=== PATIENT | male | born 1990 | race Caucasian/White ===

== ENCOUNTER 2017-09-27 17:24 | Emergency (ER) | payer OTHER ==
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
--- NOTE | 2017-09-27 18:52 | XR ---
EXAMINATION TYPE: XR lumbar spine 2 or 3V DATE OF EXAM: 09/27/2017 COMPARISON: NONE HISTORY: Low back pain TECHNIQUE: 3 views FINDINGS: Lumbar vertebra have normal spacing and alignment. Posterior elements are intact. Sacroilia c joints appear normal. I see no compression fracture. IMPRESSION: Negative lumbar spine exam
--- NOTE | 2017-09-27 18:53 | XR ---
EXAMINATION TYPE: XR thoracic spine 2V DATE OF EXAM: 09/27/2017 COMPARISON: NONE HISTORY: Back pain TECHNIQUE: 3 views FINDINGS: The thoracic vertebra have normal spacing and alignment. Posterior elements are intact. The re is no paraspinal mass. I see no compression fracture. IMPRESSION: Negative thoracic spine exam.
--- NOTE | 2017-09-27 18:55 | XR ---
EXAMINATION TYPE: XR knee complete RT DATE OF EXAM: 09/27/2017 COMPARISON: 07/06/2016 HISTORY: Knee pain TECHNIQUE: 3 views FINDINGS: There are screws in the distal femur and proximal tibia related to old reconstructive surge ry. I see no fracture nor dislocation. There is mild spurring of the medial femoral and tibial condyl es. There is no sign of joint effusion. IMPRESSION: Mild spurring. No fracture. No adverse change compared to old exam.
[2017-09-27] MEDS ORDERED: CYCLOBENZAPRINE 10MG STARTER 3 TAB BTL PO STA (19:27)
[2017-09-27] MEDS ORDERED: traMADol 50 MG STARTER PACK 3 TAB BTL PO STA (19:27)
[2017-09-27 19:50] VITALS: BP 135/60; PULSE 97; RESP 18; TEMP 99.8
== END 2017-09-27 19:50 | disposition home or self-care (01) ==
LOC: EC 17:24
DX: M17.11 Unilateral primary osteoarthritis, right knee (principal); M54.5 Low back pain; M54.6 Pain in thoracic spine
CPT/HCPCS: 72070; 72100; 99284

== ENCOUNTER 2017-10-04 18:44 | Emergency (ER) | payer OTHER ==
[2017-10-04 19:27] VITALS: BP 129/61; PULSE 95; RESP 18; TEMP 100.1
--- NOTE | 2017-10-04 20:25 | ED ---
General Adult HPI - General Chief complaint: Extremity Injury, Lower Stated complaint: Back/knee pain/fever Time Seen by Provider: 10/04/17 19:56 Source: patient, RN notes reviewed Mode of arrival: ambulatory Limitations: physical limitation - History of Present Illness Initial comments: 26-year-old male presents for right knee pain. He has a history of having knee surgery to the right knee in the past. He states that he felt a pop in his knee today and he is having more pain with movement. He was able to ambulate. He denies any falls or other trauma to the knee. He denies any fever chills. Patient was concerned due to the continued knee pain and his history of surgery state thought that he should be seen. Patient is otherwise feeling well. Patient denies any recent fever, chills, shortness of breath, chest pain, back pain, abdominal pain, nausea vomiting, numbness or tingling, dysuria or hematuria, constipation or diarrhea, headaches or visual changes, or any other current symptoms. - Related Data Home Medications Medication Instructions Recorded Confirmed Ibuprofen [Motrin Ib] 800 mg PO Q6H PRN 18 09/27/17 Previous Rx's Medication Instructions Recorded Cyclobenzaprine [Flexeril] 10 mg PO TID #15 tab 09/27/17 traMADol HCl [Ultram] 50 mg PO Q4H PRN #15 tab 09/27/17 Ibuprofen [Motrin] 600 mg PO Q6HR PRN #20 tab 10/04/17 Allergies Allergy/AdvReac Type Severity Reaction Status Date / Time Sulfa (Sulfonamide Allergy Unknown Verified 10/04/17 19:28 Antibiotics) Review of Systems ROS Statement: Those systems with pertinent positive or pertinent negative responses have been documented in the HPI. ROS Other: All systems not noted in ROS Statement are negative. Past Medical History Past Medical History: No Reported History History of Any Multi-Drug Resistant Organisms: None Reported Past Surgical History: Orthopedic Surgery Additional Past Surgical History / Comment(s): rt knee,nasal and ear surgery, cranial Past Psychological History: Anxiety Smoking Status: Never smoker Past Alcohol Use History: Occasional Past Drug Use History: None Reported General Exam - General Exam Comments Initial Comments: General: The patient is awake and alert, in no distress, and does not appear acutely ill. Neck: The neck is supple, there is no tenderness. Cardiovascular: There is a regular rate and rhythm. No murmur, rub or gallop is appreciated. Respiratory: Lungs are clear to auscultation, respirations are non-labored, breath sounds are equal. No wheezes, stridor, rales, or rhonchi. Musculoskeletal: Sensation intact with 2+ pulses throughout the right lower x- ray. Frontal motion of right ankle right knee and right hip. Patient does have some pain along the medial aspect of the right knee. Patient has some pain with range of motion of the right lung. Neurological: CN II-XII intact, There are no obvious motor or sensory deficits. Coordination appears grossly intact. Speech is normal. Skin: Skin is warm and dry and no rashes or lesions are noted. Psychiatric: Normal mood and affect. Limitations: physical limitation Course Vital Signs 10/04/17 19:23 Temperature 100.1 F H Pulse Rate 95 Respiratory 18 Rate Blood Pressure 129/61 O2 Sat by Pulse 99 Oximetry Procedures - Orthopedic Splinting/Casting Injury #1 Side: right Lower Extremity Injury Location: knee Lower Extremity Immobilizer: knee immobilizer Medical Decision Making - Medical Decision Making 26-year-old male presents complaining of right knee pain to me. At this time x- rays reviewed and negative. This time we discussed most likely right knee sprain. We did discuss fine up with or so due to his history of knee surgery in the past. We discussed return parameters and all questions. Patient stated he understood and he is here this plan. He will be discharged. - Radiology Data Radiology results: image reviewed Interpreted by me: Interpreted by me: Right knee xray: Four view, no fracture, no dislocation, no bony lesions, no foreign bodies, no soft tissue damage. Waiting official radiology read. Disposition Clinical Impression: Right knee sprain Disposition: HOME SELF-CARE Condition: Stable Instructions: Knee Sprain (ED) Additional Instructions: Please use medication as discussed. Please follow up with family doctor if symptoms have not improved over the next two days. Please return to the emergency room if your symptoms increase or worsen or for any other concerns. Prescriptions: Ibuprofen [Motrin] 600 mg PO Q6HR PRN #20 tab PRN Reason: Pain Referrals: Dale Sin DO [Doctor of Osteopathic Medicine] - 1-2 days Time of Disposition: 20:53
--- NOTE | 2017-10-04 21:17 | XR ---
PROCEDURE: XR knee 4V RT DATE AND TIME: 10/04/2017 8:16 PM REFERRING PHYSICIAN: Ayse Vaughn CLINICAL INDICATION: PHH, pain TECHNIQUE: Department protocol. COMPARISON: 09/20/1717 FINDINGS: There is no fracture or malalignment. The soft tissues are unremarkable. IMPRESSION: NO ACUTE PROCESS.
== END 2017-10-04 20:40 | disposition home or self-care (01) ==
LOC: EC 18:44
DX: S83.91XA Sprain of unspecified site of right knee, initial encounter (principal); Z88.2 Allergy status to sulfonamides; Z98.890 Other specified postprocedural states
CPT/HCPCS: 73564; 99283; L1830 ×2

== ENCOUNTER 2017-11-02 18:58 | Inpatient (IN) | payer OTHER ==
[2017-11-02] MEDS ORDERED: SODIUM CHLORIDE 0.9% 1,000 ML IV STA ×3 (19:53→21:24)
[2017-11-02] MEDS ORDERED: ACETAMINOPHEN TAB 500 MG TAB PO STA (19:53)
--- NOTE | 2017-11-02 19:55 | ED ---
General Adult HPI - General Chief complaint: Fever Stated complaint: Fever Time Seen by Provider: 11/02/17 19:49 Source: patient, RN notes reviewed Mode of arrival: ambulatory Limitations: no limitations - History of Present Illness Initial comments: Patient 27-year-old male presented to the emergency room today with chief complaint of a fever. He doesn't to cough congestion and body aches. He states symptoms started 2 days ago. Patient denies a sore throat. Denies headache. He does admit to some increased pain to his knees. He states he has a history of osteoarthritis. Patient admits that he had similar symptoms with fever a few months ago. Patient states he did take ibuprofen 800 mg approximately 2 hours ago. He denies any other complaints or symptoms. Patient denies any recent fever, chills, shortness of breath, chest pain, back pain, abdominal pain, nausea or vomiting, numbness or tingling, dysuria or hematuria, constipation or diarrhea, headaches or visual changes, or any other complaints. - Related Data Home Medications Medication Instructions Recorded Confirmed Ibuprofen [Motrin Ib] 800 mg PO Q6H PRN 09/27/17 11/02/17 Allergies Allergy/AdvReac Type Severity Reaction Status Date / Time Sulfa (Sulfonamide Allergy Unknown Verified 11/02/17 19:53 Antibiotics) Childhood Review of Systems ROS Statement: Those systems with pertinent positive or pertinent negative responses have been documented in the HPI. ROS Other: All systems not noted in ROS Statement are negative. Past Medical History Past Medical History: No Reported History Additional Past Medical History / Comment(s): chronic knee pain. back pain. Osteoarthritis in right knee. History of Any Multi-Drug Resistant Organisms: None Reported Past Surgical History: Orthopedic Surgery Additional Past Surgical History / Comment(s): rt knee,nasal and ear surgery, cranial Past Psychological History: Anxiety Smoking Status: Never smoker Past Alcohol Use History: Occasional Past Drug Use History: None Reported General Exam - General Exam Comments Initial Comments: General: The patient is awake and alert, in no distress, and does not appear acutely ill. Eye: Pupils are equal, round and reactive to light, extra-ocular movements are intact. No nystagmus. There is normal conjunctiva bilaterally. No signs of icterus. Ears, nose, mouth and throat: There are moist mucous membranes and no oral lesions. Neck: The neck is supple, there is no tenderness or JVD. Cardiovascular: There is a regular rate and rhythm. No murmur, rub or gallop is appreciated. Respiratory: Lungs are clear to auscultation, respirations are non-labored, breath sounds are equal. No wheezes, stridor, rales, or rhonchi. Musculoskeletal: Normal ROM, no tenderness. Strength 5/5. Sensation intact. Pulses equal bilaterally 2+. Neurological: A&O x 3. CN II-XII intact, There are no obvious motor or sensory deficits. Coordination appears grossly intact. Speech is normal. Skin: Skin is warm and dry and no rashes or lesions are noted. Psychiatric: Cooperative, appropriate mood & affect, normal judgment. Limitations: no limitations Course Vital Signs 11/02/17 11/02/17 11/02/17 19:37 20:12 20:54 Temperature 102.7 F H 102.5 F H Pulse Rate 132 H 117 H 117 H Respiratory 20 18 Rate Blood Pressure 127/57 156/69 O2 Sat by Pulse 93 L 93 L Oximetry 11/02/17 11/02/17 21:03 21:34 Temperature 100.5 F H Pulse Rate 125 H 114 H Respiratory 18 Rate Blood Pressure O2 Sat by Pulse 97 Oximetry EKG Findings - EKG Comments: EKG Findings:: EKG performed at 2045: Shows sinus tachycardia 116 bpm. SC interval 126. QRS 78. QT/QTC 298/414. No acute ST changes. Medical Decision Making - Medical Decision Making Case discussed in detail with attending physician Dr. Lloyd. Patient reexamined at this time shows no signs of distress. He is resting comfortably in the stretcher. Patient's vitals to show improvement after fluids and Tylenol here in emergency room. Patient denies any history of anemia. Initial lab values showed a hemoglobin 6.1. This was repeated and second test comes back at 5.9 hemoglobin. Patient will be transfused 2 units. He does have further labs studies pending that are send out. Patient will be started on Tamiflu here the emergency room admitted to the hospital for further evaluation. Patient will be covered for infection with doses of vancomycin cefepime here in the emergency room. - Lab Data Result diagrams: 11/02/17 20:50 11/02/17 20:15 Lab Results 11/02/17 11/02/17 11/02/17 Range/Units 20:00 20:15 20:15 WBC 6.3 (3.8-10.6) k/uL RBC 4.26 L (4.30-5.90) m/uL Hgb 6.1 L* (13.0-17.5) gm/dL Hct 25.4 L (39.0-53.0) % MCV 59.5 L (80.0-100.0) fL MCH 14.3 L (25.0-35.0) pg MCHC 24.0 L (31.0-37.0) g/dL RDW 20.3 H (11.5-15.5) % Plt Count 597 H (150-450) k/uL Neutrophils % 64 % Lymphocytes % 22 % Monocytes % 10 % Eosinophils % 1 % Basophils % 0 % Neutrophils # 4.0 (1.3-7.7) k/uL Lymphocytes # 1.4 (1.0-4.8) k/uL Monocytes # 0.6 (0-1.0) k/uL Eosinophils # 0.1 (0-0.7) k/uL Basophils # 0.0 (0-0.2) k/uL Hypochromasia Marked Anisocytosis Moderate Microcytosis Marked Retic Count (0.5-2.0) % Sodium 139 (137-145) mmol/L Potassium 4.0 (3.5-5.1) mmol/L Chloride 103 (98-107) mmol/L Carbon Dioxide 24 (22-30) mmol/L Anion Gap 12 mmol/L BUN 12 (9-20) mg/dL Creatinine 0.86 (0.66-1.25) mg/dL Est GFR (CKD-EPI)AfAm >90 (>60 ml/min/1.73 sqM) Est GFR (CKD-EPI)NonAf >90 (>60 ml/min/1.73 sqM) Glucose 114 H (74-99) mg/dL Plasma Lactic Acid Quintin (0.7-2.0) mmol/L Calcium 8.5 (8.4-10.2) mg/dL Total Bilirubin 0.6 (0.2-1.3) mg/dL AST 23 (17-59) U/L ALT 31 (21-72) U/L Alkaline Phosphatase 53 (38-126) U/L Troponin I (0.000-0.034) ng/mL Total Protein 6.1 L (6.3-8.2) g/dL Albumin 3.7 (3.5-5.0) g/dL Urine Color Urine Appearance (Clear) Urine pH (5.0-8.0) Ur Specific [place] (1.001-1.035) Urine Protein (Negative) Urine Glucose (UA) (Negative) Urine Ketones (Negative) Urine Blood (Negative) Urine Nitrite (Negative) Urine Bilirubin (Negative) Urine Urobilinogen (<2.0) mg/dL Ur Leukocyte Esterase (Negative) Urine RBC (0-5) /hpf Urine WBC (0-5) /hpf Ur Squamous Epith Cells (0-4) /hpf Amorphous Sediment (None) /hpf Urine Bacteria (None) /hpf Urine Mucus (None) /hpf Influenza Type A RNA (Not Detectd) Influenza Type B (PCR) (Not Detectd) Group A Strep Rapid (Negative) Blood Type A Positive Blood Type Confirm Blood Type Recheck CABO Indicated Antibody Screen NEGATIVE Crossmatch See Detail Spec Expiration Date 11/05/2017229911/02/17 11/02/17 11/02/17 Range/Units 20:15 20:15 20:15 WBC (3.8-10.6) k/uL RBC (4.30-5.90) m/uL Hgb (13.0-17.5) gm/dL Hct (39.0-53.0) % MCV (80.0-100.0) fL MCH (25.0-35.0) pg MCHC (31.0-37.0) g/dL RDW (11.5-15.5) % Plt Count (150-450) k/uL Neutrophils % % Lymphocytes % % Monocytes % % Eosinophils % % Basophils % % Neutrophils # (1.3-7.7) k/uL Lymphocytes # (1.0-4.8) k/uL Monocytes # (0-1.0) k/uL Eosinophils # (0-0.7) k/uL Basophils # (0-0.2) k/uL Hypochromasia Anisocytosis Microcytosis Retic Count (0.5-2.0) % Sodium (137-145) mmol/L Potassium (3.5-5.1) mmol/L Chloride (98-107) mmol/L Carbon Dioxide (22-30) mmol/L Anion Gap mmol/L BUN (9-20) mg/dL Creatinine (0.66-1.25) mg/dL Est GFR (CKD-EPI)AfAm (>60 ml/min/1.73 sqM) Est GFR (CKD-EPI)NonAf (>60 ml/min/1.73 sqM) Glucose (74-99) mg/dL Plasma Lactic Acid Quintin 0.6 L (0.7-2.0) mmol/L Calcium (8.4-10.2) mg/dL Total Bilirubin (0.2-1.3) mg/dL AST (17-59) U/L ALT (21-72) U/L Alkaline Phosphatase (38-126) U/L Troponin I (0.000-0.034) ng/mL Total Protein (6.3-8.2) g/dL Albumin (3.5-5.0) g/dL Urine Color Urine Appearance (Clear) Urine pH (5.0-8.0) Ur Specific [place] (1.001-1.035) Urine Protein (Negative) Urine Glucose (UA) (Negative) Urine Ketones (Negative) Urine Blood (Negative) Urine Nitrite (Negative) Urine Bilirubin (Negative) Urine Urobilinogen (<2.0) mg/dL Ur Leukocyte Esterase (Negative) Urine RBC (0-5) /hpf Urine WBC (0-5) /hpf Ur Squamous Epith Cells (0-4) /hpf Amorphous Sediment (None) /hpf Urine Bacteria (None) /hpf Urine Mucus (None) /hpf Influenza Type A RNA Detected H (Not Detectd) Influenza Type B (PCR) Not Detected (Not Detectd) Group A Strep Rapid Negative (Negative) Blood Type Blood Type Confirm Blood Type Recheck Antibody Screen Crossmatch Spec Expiration Date 11/02/17 11/02/17 11/02/17 Range/Units 20:40 20:50 20:50 WBC 6.5 (3.8-10.6) k/uL RBC 4.08 L (4.30-5.90) m/uL Hgb 5.9 L* (13.0-17.5) gm/dL Hct 25.1 L (39.0-53.0) % MCV 61.6 L (80.0-100.0) fL MCH 14.4 L (25.0-35.0) pg MCHC 23.5 L (31.0-37.0) g/dL RDW 20.8 H (11.5-15.5) % Plt Count 699 H (150-450) k/uL Neutrophils % % Lymphocytes % % Monocytes % % Eosinophils % % Basophils % % Neutrophils # (1.3-7.7) k/uL Lymphocytes # (1.0-4.8) k/uL Monocytes # (0-1.0) k/uL Eosinophils # (0-0.7) k/uL Basophils # (0-0.2) k/uL Hypochromasia Marked Anisocytosis Moderate Microcytosis Marked Retic Count (0.5-2.0) % Sodium (137-145) mmol/L Potassium (3.5-5.1) mmol/L Chloride (98-107) mmol/L Carbon Dioxide (22-30) mmol/L Anion Gap mmol/L BUN (9-20) mg/dL Creatinine (0.66-1.25) mg/dL Est GFR (CKD-EPI)AfAm (>60 ml/min/1.73 sqM) Est GFR (CKD-EPI)NonAf (>60 ml/min/1.73 sqM) Glucose (74-99) mg/dL Plasma Lactic Acid Quintin (0.7-2.0) mmol/L Calcium (8.4-10.2) mg/dL Total Bilirubin (0.2-1.3) mg/dL AST (17-59) U/L ALT (21-72) U/L Alkaline Phosphatase (38-126) U/L Troponin I 0.033 (0.000-0.034) ng/mL Total Protein (6.3-8.2) g/dL Albumin (3.5-5.0) g/dL Urine Color Yellow Urine Appearance Clear (Clear) Urine pH 5.5 (5.0-8.0) Ur Specific [place] 1.023 (1.001-1.035) Urine Protein 1+ H (Negative) Urine Glucose (UA) Negative (Negative) Urine Ketones Negative (Negative) Urine Blood Negative (Negative) Urine Nitrite Negative (Negative) Urine Bilirubin Negative (Negative) Urine Urobilinogen <2.0 (<2.0) mg/dL Ur Leukocyte Esterase Negative (Negative) Urine RBC <1 (0-5) /hpf Urine WBC 2 (0-5) /hpf Ur Squamous Epith Cells <1 (0-4) /hpf Amorphous Sediment Rare H (None) /hpf Urine Bacteria Rare H (None) /hpf Urine Mucus Moderate H (None) /hpf Influenza Type A RNA (Not Detectd) Influenza Type B (PCR) (Not Detectd) Group A Strep Rapid (Negative) Blood Type Blood Type Confirm Blood Type Recheck Antibody Screen Crossmatch Spec Expiration Date 11/02/17 11/02/17 Range/Units 20:50 21:00 WBC (3.8-10.6) k/uL RBC (4.30-5.90) m/uL Hgb (13.0-17.5) gm/dL Hct (39.0-53.0) % MCV (80.0-100.0) fL MCH (25.0-35.0) pg MCHC (31.0-37.0) g/dL RDW (11.5-15.5) % Plt Count (150-450) k/uL Neutrophils % % Lymphocytes % % Monocytes % % Eosinophils % % Basophils % % Neutrophils # (1.3-7.7) k/uL Lymphocytes # (1.0-4.8) k/uL Monocytes # (0-1.0) k/uL Eosinophils # (0-0.7) k/uL Basophils # (0-0.2) k/uL Hypochromasia Anisocytosis Microcytosis Retic Count 1.9 (0.5-2.0) % Sodium (137-145) mmol/L Potassium (3.5-5.1) mmol/L Chloride (98-107) mmol/L Carbon Dioxide (22-30) mmol/L Anion Gap mmol/L BUN (9-20) mg/dL Creatinine (0.66-1.25) mg/dL Est GFR (CKD-EPI)AfAm (>60 ml/min/1.73 sqM) Est GFR (CKD-EPI)NonAf (>60 ml/min/1.73 sqM) Glucose (74-99) mg/dL Plasma Lactic Acid Quintin (0.7-2.0) mmol/L Calcium (8.4-10.2) mg/dL Total Bilirubin (0.2-1.3) mg/dL AST (17-59) U/L ALT (21-72) U/L Alkaline Phosphatase (38-126) U/L Troponin I (0.000-0.034) ng/mL Total Protein (6.3-8.2) g/dL Albumin (3.5-5.0) g/dL Urine Color Urine Appearance (Clear) Urine pH (5.0-8.0) Ur Specific [place] (1.001-1.035) Urine Protein (Negative) Urine Glucose (UA) (Negative) Urine Ketones (Negative) Urine Blood (Negative) Urine Nitrite (Negative) Urine Bilirubin (Negative) Urine Urobilinogen (<2.0) mg/dL Ur Leukocyte Esterase (Negative) Urine RBC (0-5) /hpf Urine WBC (0-5) /hpf Ur Squamous Epith Cells (0-4) /hpf Amorphous Sediment (None) /hpf Urine Bacteria (None) /hpf Urine Mucus (None) /hpf Influenza Type A RNA (Not Detectd) Influenza Type B (PCR) (Not Detectd) Group A Strep Rapid (Negative) Blood Type Blood Type Confirm A Positive Blood Type Recheck Antibody Screen Crossmatch Spec Expiration Date Disposition Clinical Impression: Influenza A, Anemia Disposition: ADMITTED IP TO THIS HOSP Condition: Stable Referrals: None,Stated [Primary Care Provider] - 1-2 days Time of Disposition: 21:25
[2017-11-02] MEDS ORDERED: IPRATROPIUM-ALBUTEROL 3 ML NEB INHALATION STA (20:15)
[2017-11-02 20:25] LABS: Anisocytosis Moderate; Basophils % (A) 0 %; Eosinophils # (A) 0.1 k/uL (0-0.7); Eosinophils % (A) 1 %; HCT 25.4 % (39.0-53.0); Hypochromasia Marked; Lymphocytes # (A) 1.4 k/uL (1.0-4.8); Lymphocytes % (A) 22 %; MCH 14.3 pg (25.0-35.0); MCV 59.5 fL (80.0-100.0); Mean Platelet Volume 7.6; Microcytosis Marked; Monocytes # (A) 0.6 k/uL (0-1.0); Monocytes % (A) 10 %; Neutrophils % (A) 64 %; Platelet Count 597 k/uL (150-450); RBC 4.26 m/uL (4.30-5.90); RDW 20.3 % (11.5-15.5); WBC 6.3 k/uL (3.8-10.6)
[2017-11-02 20:33] LABS: HGB 6.1 gm/dL (13.0-17.5)
[2017-11-02 20:35] LABS: ALT 31 U/L (21-72); AST 23 U/L (17-59); Albumin 3.7 g/dL (3.5-5.0); Alkaline Phosphatase 53 U/L (38-126); Anion Gap 12 mmol/L; Blood Urea Nitrogen 12 mg/dL (9-20); Calcium 8.5 mg/dL (8.4-10.2); Carbon Dioxide 24 mmol/L (22-30); Chloride 103 mmol/L (98-107); Glucose 114 mg/dL (74-99); Sodium 139 mmol/L (137-145); Total Bilirubin 0.6 mg/dL (0.2-1.3); Total Protein 6.1 g/dL (6.3-8.2)
--- NOTE | 2017-11-02 20:38 | XR ---
EXAMINATION: XR chest 2V DATE AND TIME: 11/02/2017 8:30 PM ORDERING PROVIDER: Lloyd Leggett CLINICAL INDICATION: cough and congestion and fever TECHNIQUE: PA and lateral COMPARISON: 10/19/2010 DESCRIPTION: The lungs are clear. The pleural spaces are negative. The cardiac silhouette is not enlarged. The mediastinal and pleural silhouettes are unremarkable. The skeletal structures are intact without focal findings. The soft tissues are unremarkable. IMPRESSION: NO ACUTE PROCESS.
[2017-11-02 21:00] LABS: Anisocytosis Moderate; HCT 25.1 % (39.0-53.0); Hypochromasia Marked; MCH 14.4 pg (25.0-35.0); MCHC 23.5 g/dL (31.0-37.0); MCV 61.6 fL (80.0-100.0); Mean Platelet Volume 8.3; Microcytosis Marked; Platelet Count 699 k/uL (150-450); RBC 4.08 m/uL (4.30-5.90); RDW 20.8 % (11.5-15.5); WBC 6.5 k/uL (3.8-10.6)
[2017-11-02 21:03] LABS: HGB 5.9 gm/dL (13.0-17.5)
[2017-11-02 21:07] LABS: Amorphous Sediment,Urine Rare /hpf; Appearance,Urine Clear (Clear); Bacteria,Urine Rare /hpf; Bilirubin,Urine Negative (Negative); Blood,Urine Negative (Negative); Color,Urine Yellow; Glucose,Urine (UA) Negative (Negative); Ketones,Urine Negative (Negative); Leukocyte Esterase,Urine Negative (Negative); Mucus,Urine Moderate /hpf; Nitrite,Urine Negative (Negative); PH, Urine 5.5 (5.0-8.0); Protein,Urine 1+ (Negative); RBC,Urine <1 /hpf (0-5); Specific Gravity,Urine 1.023 (1.001-1.035); Squamous Epithelial Cell,Urine <1 /hpf (0-4); Urobilinogen,Urine <2.0 mg/dL (<2.0); WBC,Urine 2 /hpf (0-5)
[2017-11-02] MEDS ORDERED: OSELTAMIVIR 75 MG CAP PO STA (21:14)
[2017-11-02 21:23] LABS: Reticulocyte % 1.9 % (0.5-2.0)
[2017-11-02] MEDS ORDERED: VANCOMYCIN 1,750 MG in SODIUM CHLORIDE 0.9% 250 ML IVPB STA (21:37)
[2017-11-02] MEDS ORDERED: CEFEPIME 2 GM in SODIUM CHLORIDE 0.9% 50 ML IVPB STA (21:37)
[2017-11-02] MEDS ORDERED: ONDANSETRON 4 MG/2 ML VIAL IVP PRN (21:42)
[2017-11-02] MEDS ORDERED: IBUPROFEN 400 MG TAB PO PRN (21:42)
[2017-11-02] MEDS ORDERED: LORazepam 2 MG/ML INJ IV PRN (21:42)
[2017-11-02] MEDS ORDERED: NALOXONE 0.4 MG/ML 1 ML VIAL IV PRN (21:42)
[2017-11-02 23:11] VITALS: BMI 33.7
[2017-11-03] MEDS ORDERED: traMADol 50 MG TAB PO PRN (00:31)
[2017-11-03] MEDS: PANTOPRAZOLE 40 MG/10 ML VIAL IVP SCH ×2 (01:22→08:01)
[2017-11-03 02:02] LABS: Folate, Serum 21.8 ng/mL; Iron Saturation 2.33 (15.00-50.00)
[2017-11-03] MEDS: OSELTAMIVIR 75 MG CAP PO SCH ×2 (08:02→21:40)
[2017-11-03] MEDS: ACETAMINOPHEN TAB 325 MG TAB PO PRN ×2 (08:02→18:19)
[2017-11-03 08:11] LABS: ALT 28 U/L (21-72); AST 28 U/L (17-59); Albumin 3.5 g/dL (3.5-5.0); Alkaline Phosphatase 45 U/L (38-126); Anion Gap 11 mmol/L; Blood Urea Nitrogen 10 mg/dL (9-20); Calcium 8.4 mg/dL (8.4-10.2); Carbon Dioxide 25 mmol/L (22-30); Chloride 104 mmol/L (98-107); Glucose 94 mg/dL (74-99); Potassium 4.4 mmol/L (3.5-5.1); Sodium 140 mmol/L (137-145); Total Bilirubin 0.7 mg/dL (0.2-1.3)
[2017-11-03 08:19] LABS: Anisocytosis Moderate; Basophils % (A) 0 %; Eosinophils # (A) 0.2 k/uL (0-0.7); Eosinophils % (A) 2 %; HCT 31.2 % (39.0-53.0); Hypochromasia Marked; Lymphocytes # (A) 1.2 k/uL (1.0-4.8); Lymphocytes % (A) 12 %; MCH 16.5 pg (25.0-35.0); MCHC 24.8 g/dL (31.0-37.0); Mean Platelet Volume 8.7; Microcytosis Marked; Monocytes # (A) 0.5 k/uL (0-1.0); Monocytes % (A) 5 %; Neutrophils # (A) 7.5 k/uL (1.3-7.7); Neutrophils % (A) 78 %; Platelet Count 598 k/uL (150-450); Poikilocytosis Marked; RBC 4.67 m/uL (4.30-5.90); RDW 23.1 % (11.5-15.5); WBC 9.6 k/uL (3.8-10.6)
[2017-11-03 08:21] LABS: MCV 66.7 fL (80.0-100.0)
[2017-11-03 08:23] LABS: HGB 7.7 gm/dL (13.0-17.5)
[2017-11-03 09:25] LABS: Polychromasia Present; Toxic Granulation Present
[2017-11-03 09:26] LABS: Mixed Population RBC Present
--- NOTE | 2017-11-03 12:39 | P.HPIM ---
History of Present Illness 27-year-old male presented to the emergency room today with chief complaint of a fever. He doesn't to cough congestion and body aches. He states symptoms started 2 days ago. Patient denies a sore throat. Denies headache. He does admit to some increased pain to his knees. He states he has a history of osteoarthritis. Patient the was having upper GI bleed and hematemesis for long time. Patient examined present since his knee surgery on the right knee. Patient states he did take ibuprofen 800 mg approximately 2 hours ago. He denies any other complaints or symptoms. Patient denies any recent fever, chills , shortness of breath, chest pain, back pain, abdominal pain, nausea or vomiting , numbness or tingling, dysuria or hematuria, constipation or diarrhea, headaches or visual changes, or any other complaints. Patient is found to have influenza B infection. Patient was started on Tamiflu. His symptoms started on Tuesday pleasant 48 hours ago. Patient appears to have severe microcytic anemia, probably related to peptic ulcer disease and chronic GI bleed, gastroenterology was consulted. Ferritin level will be obtained. Review of Systems REVIEW OF SYSTEMS: CONSTITUTIONAL: As mentioned in in HPI HEENT: No recent visual problems or hearing problems. Denied any sore throat. CARDIOVASCULAR: No chest pain, orthopnea, PND, no palpitations, no syncope. PULMONARY: No shortness of breath, no cough, no hemoptysis. GASTROINTESTINAL: No diarrhea, no nausea, no vomiting, no abdominal pain. Normoactive bowel sounds. NEUROLOGICAL: No headaches, no weakness, no numbness. HEMATOLOGICAL: Denies any bleeding or petechiae. GENITOURINARY: Denies any burning micturition, frequency, or urgency. MUSCULOSKELETAL/RHEUMATOLOGICAL: Denies any joint pain, swelling, or any muscle pain. ENDOCRINE: Denies any polyuria or polydipsia. The rest of the 14-point review of systems is negative. Past Medical History Past Medical History: Osteoarthritis (OA) Additional Past Medical History / Comment(s): chronic knee pain. back pain. Osteoarthritis in right knee, anemia influenza A History of Any Multi-Drug Resistant Organisms: None Reported Past Surgical History: Orthopedic Surgery Additional Past Surgical History / Comment(s): rt knee,nasal and ear surgery, cranial synostosis as an infant. Past Anesthesia/Blood Transfusion Reactions: No Reported Reaction Past Psychological History: Anxiety Smoking Status: Never smoker Past Alcohol Use History: Occasional Additional Past Alcohol Use History / Comment(s): Pt. states he drinks alcohol on occasion. Past Drug Use History: None Reported - Past Family History Father Family Medical History: Diabetes Mellitus Additional Family Medical History / Comment(s): Hiatal hernia. Mother Family Medical History: No Reported History Medications and Allergies Home Medications Medication Instructions Recorded Confirmed Type Ibuprofen [Motrin Ib] 800 mg PO Q6H PRN 09/27/17 11/02/17 History Allergies Allergy/AdvReac Type Severity Reaction Status Date / Time Sulfa (Sulfonamide Allergy Unknown Verified 11/02/17 23:12 Antibiotics) Childhood Physical Exam Vitals: Vital Signs Temp Pulse Pulse Resp BP BP Pulse Ox 11/03/17 08:37 102.3 F H 11/03/17 07:00 103.1 F H 123 H 18 138/62 97 11/03/17 01:07 97.5 F L 96 108/79 95 11/03/17 00:37 97.8 F 94 117/61 11/03/17 00:27 96 118/62 11/03/17 00:20 98.5 F 98 113/63 11/02/17 23:00 98.1 F 98 128/82 98 11/02/17 22:36 98.1 F 98 18 128/82 98 11/02/17 22:06 98.8 F 104 H 18 111/48 11/02/17 21:56 99.3 F 108 H 18 126/56 97 11/02/17 21:34 100.5 F H 114 H 18 97 11/02/17 21:03 125 H 11/02/17 20:54 117 H 11/02/17 20:12 102.5 F H 117 H 18 156/69 93 L 11/02/17 19:37 102.7 F H 132 H 20 127/57 93 L Intake and Output 11/02/17 11/03/17 11/03/17 22:59 06:59 14:59 Intake Total 0 620 Balance 0 620 Intake: Blood Product 0 620 Rc As-1 Unit 310 [id number] Rc As-1 Unit 0 310 [id number] Other: Voiding Method Toilet # Voids 3 Weight 106.5 kg PHYSICAL EXAMINATION: GENERAL: The patient is alert and oriented x3, not in any acute distress. Well developed, well nourished. HEENT: Pupils are round and equally reacting to light. EOMI. No scleral icterus. Patient does have conjunctival pallor. Normocephalic, atraumatic. No pharyngeal erythema. No thyromegaly. CARDIOVASCULAR: S1 and S2 present. No murmurs, rubs, or gallops. PULMONARY: Chest is clear to auscultation, no wheezing or crackles. ABDOMEN: Soft, nontender, nondistended, normoactive bowel sounds. No palpable organomegaly. MUSCULOSKELETAL: No joint swelling or deformity. EXTREMITIES: No cyanosis, clubbing, or pedal edema. NEUROLOGICAL: Gross neurological examination did not reveal any focal deficits. SKIN: No rashes. Results CBC & Chem 7: 11/03/17 07:32 11/03/17 07:32 Labs: Abnormal Lab Results - Last 24 Hours (Table) 11/02/17 11/02/17 11/02/17 Range/Units 20:00 20:15 20:15 RBC 4.26 L (4.30-5.90) m/uL Hgb 6.1 L* (13.0-17.5) gm/dL Hct 25.4 L (39.0-53.0) % MCV 59.5 L (80.0-100.0) fL MCH 14.3 L (25.0-35.0) pg MCHC 24.0 L (31.0-37.0) g/dL RDW 20.3 H (11.5-15.5) % Plt Count 597 H (150-450) k/uL Glucose 114 H (74-99) mg/dL Plasma Lactic Acid Quintin (0.7-2.0) mmol/L Iron (65-175) ug/dL Iron Saturation (15.00-50.00) Ferritin (22.0-322.0) ng/mL Total Protein 6.1 L (6.3-8.2) g/dL Urine Protein (Negative) Amorphous Sediment (None) /hpf Urine Bacteria (None) /hpf Urine Mucus (None) /hpf Influenza Type A RNA (Not Detectd) Crossmatch See Detail 11/02/17 11/02/17 11/02/17 Range/Units 20:15 20:15 20:40 RBC (4.30-5.90) m/uL Hgb (13.0-17.5) gm/dL Hct (39.0-53.0) % MCV (80.0-100.0) fL MCH (25.0-35.0) pg MCHC (31.0-37.0) g/dL RDW (11.5-15.5) % Plt Count (150-450) k/uL Glucose (74-99) mg/dL Plasma Lactic Acid Quintin 0.6 L (0.7-2.0) mmol/L Iron (65-175) ug/dL Iron Saturation (15.00-50.00) Ferritin (22.0-322.0) ng/mL Total Protein (6.3-8.2) g/dL Urine Protein 1+ H (Negative) Amorphous Sediment Rare H (None) /hpf Urine Bacteria Rare H (None) /hpf Urine Mucus Moderate H (None) /hpf Influenza Type A RNA Detected H (Not Detectd) Crossmatch 11/02/17 11/02/17 11/03/17 Range/Units 20:50 21:00 07:32 RBC 4.08 L (4.30-5.90) m/uL Hgb 5.9 L* 7.7 L D (13.0-17.5) gm/dL Hct 25.1 L 31.2 L (39.0-53.0) % MCV 61.6 L 66.7 L D (80.0-100.0) fL MCH 14.4 L 16.5 L (25.0-35.0) pg MCHC 23.5 L 24.8 L (31.0-37.0) g/dL RDW 20.8 H 23.1 H (11.5-15.5) % Plt Count 699 H 598 H (150-450) k/uL Glucose (74-99) mg/dL Plasma Lactic Acid Quintin (0.7-2.0) mmol/L Iron 9 L (65-175) ug/dL Iron Saturation 2.33 L (15.00-50.00) Ferritin 6.4 L (22.0-322.0) ng/mL Total Protein (6.3-8.2) g/dL Urine Protein (Negative) Amorphous Sediment (None) /hpf Urine Bacteria (None) /hpf Urine Mucus (None) /hpf Influenza Type A RNA (Not Detectd) Crossmatch 11/03/17 Range/Units 07:32 RBC (4.30-5.90) m/uL Hgb (13.0-17.5) gm/dL Hct (39.0-53.0) % MCV (80.0-100.0) fL MCH (25.0-35.0) pg MCHC (31.0-37.0) g/dL RDW (11.5-15.5) % Plt Count (150-450) k/uL Glucose (74-99) mg/dL Plasma Lactic Acid Quintin (0.7-2.0) mmol/L Iron (65-175) ug/dL Iron Saturation (15.00-50.00) Ferritin (22.0-322.0) ng/mL Total Protein 6.0 L (6.3-8.2) g/dL Urine Protein (Negative) Amorphous Sediment (None) /hpf Urine Bacteria (None) /hpf Urine Mucus (None) /hpf Influenza Type A RNA (Not Detectd) Crossmatch Microbiology - Last 24 Hours (Table) 11/02/17 20:15 Group A Strep Throat Culture - Preliminary Throat 11/02/17 20:40 Urine Culture - Preliminary Urine,Voided Thrombosis Risk Factor Assmnt - Choose All That Apply Any of the Below Risk Factors Present?: Yes Each Factor Represents 1 point: Obesity (BMI >25) Other Risk Factors: No Other congenital or acquired thrombophilia - If yes, enter type in comment: No Thrombosis Risk Factor Assessment Total Risk Factor Score: 1 Thrombosis Risk Factor Assessment Level: Low Risk Assessment and Plan Plan: -Systemic inflammatory response syndrome: Secondary to influenza B infection. Patient is receiving IV fluids. Patient is clinically doing well probably can be discharged tomorrow. -Chronic to subacute upper GI bleed secondary to peptic ulcer disease from ibuprofen. Ibuprofen will be discontinued. Patient can take [id number] Tylenol for pain and the patient is on Protonix presently gastric body was consulted. Patient received 2 units of blood transfusion. Patient's hemoglobin is presently 7.4, patient is asymptomatic at this time - Iron deficiency anemia, most probably from R chronic GI bleed. Patient does have microcytic anemia. Ferritin level will be obtained
--- NOTE | 2017-11-03 13:40 | P.CONS ---
History of Present Illness - Reason for Consult Consult date: 11/03/17 Anemia Requesting physician: Chemo Smith - Chief Complaint Fever - History of Present Illness Mr. Ulloa is a pleasant 27 yo male with history of reflux and right knee trauma requiring surgery who is here for fevers, up to 104 at home, and associated chills. No other new complaints. Work up revealed Influenza A and CBC with normal WBC, elevated platelets at 500's, and Hgb 6.1. He was transfused 2 units pRBC and Hgb increased to 7.7. B12, folate normal. Iron panel with ferritin 6. Retic normal. He does disclose hematemesis once a week for several years. Otherwise, no nose/gum bleeding, hemoptysis, hematuria, hematochezia, or melena. No unusual bruising. States he does take motrin 1-2x/ day for arthritis of his right knee. Otherwise takes tums for reflux. Family history of hiatal hernia and he suspects to have this as well. No other complaints. No smoking, rare alcohol, and no drug use. Lives with mother and sister. No known family history of malignancy or bleeding disorders. Review of Systems All systems: negative Constitutional: Reports as per HPI Past Medical History Past Medical History: Osteoarthritis (OA) Additional Past Medical History / Comment(s): chronic knee pain. back pain. Osteoarthritis in right knee, anemia influenza A, reflux History of Any Multi-Drug Resistant Organisms: None Reported Past Surgical History: Orthopedic Surgery Additional Past Surgical History / Comment(s): rt knee,nasal and ear surgery, cranial synostosis as an infant. Past Anesthesia/Blood Transfusion Reactions: No Reported Reaction Past Psychological History: Anxiety Smoking Status: Never smoker Past Alcohol Use History: Occasional Additional Past Alcohol Use History / Comment(s): Pt. states he drinks alcohol on occasion. Past Drug Use History: None Reported - Past Family History Father Family Medical History: Diabetes Mellitus Additional Family Medical History / Comment(s): Hiatal hernia. Mother Family Medical History: No Reported History Medications and Allergies Home Medications Medication Instructions Recorded Confirmed Type Ibuprofen [Motrin Ib] 800 mg PO Q6H PRN 09/27/17 11/02/17 History Allergies Allergy/AdvReac Type Severity Reaction Status Date / Time Sulfa (Sulfonamide Allergy Unknown Verified 11/02/17 23:12 Antibiotics) Childhood Physical Exam Vitals: Vital Signs Temp Pulse Pulse Resp BP BP Pulse Ox 11/03/17 08:37 102.3 F H 11/03/17 07:00 103.1 F H 123 H 18 138/62 97 11/03/17 01:07 97.5 F L 96 108/79 95 11/03/17 00:37 97.8 F 94 117/61 11/03/17 00:27 96 118/62 11/03/17 00:20 98.5 F 98 113/63 11/02/17 23:00 98.1 F 98 128/82 98 11/02/17 22:36 98.1 F 98 18 128/82 98 11/02/17 22:06 98.8 F 104 H 18 111/48 11/02/17 21:56 99.3 F 108 H 18 126/56 97 11/02/17 21:34 100.5 F H 114 H 18 97 11/02/17 21:03 125 H 11/02/17 20:54 117 H 11/02/17 20:12 102.5 F H 117 H 18 156/69 93 L 11/02/17 19:37 102.7 F H 132 H 20 127/57 93 L Intake and Output 11/02/17 11/03/17 11/03/17 22:59 06:59 14:59 Intake Total 0 620 Balance 0 620 Intake: Blood Product 0 620 Rc As-1 Unit 310 [id number] Rc As-1 Unit 0 310 [id number] Other: Voiding Method Toilet # Voids 3 Weight 106.5 kg Constitutional: No acute distress. HEENT: EOMI. No scleral icterus. Conjunctival pallor. Mucosa moist without lesions. Neck: Neck supple. Lymph: No cervical or axillary LAD. Lungs: CTA-B with mild bibasilar rhonchi. Heart: RRR without murmurs. ~No LE edema. Abdomen: Soft, nontender, nondistended, with positive bowel sounds. ~ MSK: 4/4 strength in all 4 extremities. Neuro: Alert and oriented x 3. ~No obvious gross neurologic deficits. Skin: No jaundice or rash. Pale. Psych: Appropriate affect Results CBC & Chem 7: 11/03/17 07:32 11/03/17 07:32 Labs: Abnormal Lab Results - Last 24 Hours (Table) 11/02/17 11/02/17 11/02/17 Range/Units 20:00 20:15 20:15 RBC 4.26 L (4.30-5.90) m/uL Hgb 6.1 L* (13.0-17.5) gm/dL Hct 25.4 L (39.0-53.0) % MCV 59.5 L (80.0-100.0) fL MCH 14.3 L (25.0-35.0) pg MCHC 24.0 L (31.0-37.0) g/dL RDW 20.3 H (11.5-15.5) % Plt Count 597 H (150-450) k/uL Glucose 114 H (74-99) mg/dL Plasma Lactic Acid Quintin (0.7-2.0) mmol/L Iron (65-175) ug/dL Iron Saturation (15.00-50.00) Ferritin (22.0-322.0) ng/mL Total Protein 6.1 L (6.3-8.2) g/dL Urine Protein (Negative) Amorphous Sediment (None) /hpf Urine Bacteria (None) /hpf Urine Mucus (None) /hpf Influenza Type A RNA (Not Detectd) Crossmatch See Detail 11/02/17 11/02/17 11/02/17 Range/Units 20:15 20:15 20:40 RBC (4.30-5.90) m/uL Hgb (13.0-17.5) gm/dL Hct (39.0-53.0) % MCV (80.0-100.0) fL MCH (25.0-35.0) pg MCHC (31.0-37.0) g/dL RDW (11.5-15.5) % Plt Count (150-450) k/uL Glucose (74-99) mg/dL Plasma Lactic Acid Quintin 0.6 L (0.7-2.0) mmol/L Iron (65-175) ug/dL Iron Saturation (15.00-50.00) Ferritin (22.0-322.0) ng/mL Total Protein (6.3-8.2) g/dL Urine Protein 1+ H (Negative) Amorphous Sediment Rare H (None) /hpf Urine Bacteria Rare H (None) /hpf Urine Mucus Moderate H (None) /hpf Influenza Type A RNA Detected H (Not Detectd) Crossmatch 11/02/17 11/02/17 11/03/17 Range/Units 20:50 21:00 07:32 RBC 4.08 L (4.30-5.90) m/uL Hgb 5.9 L* 7.7 L D (13.0-17.5) gm/dL Hct 25.1 L 31.2 L (39.0-53.0) % MCV 61.6 L 66.7 L D (80.0-100.0) fL MCH 14.4 L 16.5 L (25.0-35.0) pg MCHC 23.5 L 24.8 L (31.0-37.0) g/dL RDW 20.8 H 23.1 H (11.5-15.5) % Plt Count 699 H 598 H (150-450) k/uL Glucose (74-99) mg/dL Plasma Lactic Acid Quintin (0.7-2.0) mmol/L Iron 9 L (65-175) ug/dL Iron Saturation 2.33 L (15.00-50.00) Ferritin 6.4 L (22.0-322.0) ng/mL Total Protein (6.3-8.2) g/dL Urine Protein (Negative) Amorphous Sediment (None) /hpf Urine Bacteria (None) /hpf Urine Mucus (None) /hpf Influenza Type A RNA (Not Detectd) Crossmatch 11/03/17 Range/Units 07:32 RBC (4.30-5.90) m/uL Hgb (13.0-17.5) gm/dL Hct (39.0-53.0) % MCV (80.0-100.0) fL MCH (25.0-35.0) pg MCHC (31.0-37.0) g/dL RDW (11.5-15.5) % Plt Count (150-450) k/uL Glucose (74-99) mg/dL Plasma Lactic Acid Quintin (0.7-2.0) mmol/L Iron (65-175) ug/dL Iron Saturation (15.00-50.00) Ferritin (22.0-322.0) ng/mL Total Protein 6.0 L (6.3-8.2) g/dL Urine Protein (Negative) Amorphous Sediment (None) /hpf Urine Bacteria (None) /hpf Urine Mucus (None) /hpf Influenza Type A RNA (Not Detectd) Crossmatch Microbiology - Last 24 Hours (Table) 11/02/17 20:15 Group A Strep Throat Culture - Preliminary Throat 11/02/17 20:40 Urine Culture - Preliminary Urine,Voided Assessment and Plan Assessment: 1. Microcytic anemia, likely due to iron deficiency 2. Influenza A 3. Iron deficiency, likely due to chronic GI blood loss 4. Thrombocytosis, likely reactive from iron deficiency 5. Hematemesis, chronic 6. Reflux Plan: Mr. Ulloa is a pleasant 27 yo male with history of reflux and knee arthritis, who takes tums and motrin daily, as well as chronic hematemesis, here for fevers due to Influenza A, found to have microcytic anemia with Hgb 6. He was transfused 2 units pRBC with appropriate increase in hemoglobin. Work up so far including retic, B12, folate, and iron panel is consistent with iron deficiency, ferritin 6, and normal B12, folate, and retic. His iron is low likely chronic upper GI bleed with his history of NSAID use and hematemesis for several years now. Counseled on NSAID use. Retic likely normal inappropriately due to severe iron deficiency. He will need GI evaluation. Will also arrange for IV iron infusion while inpatient, which he should continue upon discharge in our clinic (his iron deficit is 2100mg). He should also start oral daily iron supplements after GI work up completed. Will also obtain further anemia work up to ensure no other contributing etiology. Discussed with pt and his sister at bedside and they were agreeable to the plan. All questions were answered.
[2017-11-03 19:02] LABS: Hepatitis A Antibody IgM Non-Reactive (Non-Reactive); Hepatitis B Core IgM Non-Reactive (Non-Reactive)
[2017-11-03 20:09] LABS: HIV AB P24 Non-Reactive (Non-Reactive); HIV P24 AG Non-Reactive (Non-Reactive)
--- NOTE | 2017-11-03 22:49 | CONS ---
CONSULTATION DATE OF SERVICE: 11/03/2017 REASON FOR CONSULTATION: Fever. HISTORY OF PRESENT ILLNESS: The patient is 27-year-old male, otherwise healthy, presenting to the ER at [facility] last night with chief complaints of fever of 104 degrees Fahrenheit. The patient's symptoms started the day prior presentation to hospital, associated with generalized weakness and no energy and generalized body aches. The patient did have a slight sore throat and runny nose, but no other URI symptoms. The patient denies any difficulty breathing. The patient had mild cough, not bringing up any sputum. No chest pain. No abdominal pain. No nausea, no vomiting. No urinary symptoms. With these symptoms, the patient presented to the [facility] ER. The patient evaluated by the ER physician. He was noticed to have a fever of 102.7 degrees Fahrenheit. The patient did have a normal white count; however, the patient was noted to be anemic with hemoglobin of 6.1 for which hematology has been consulted. Electrolytes were normal. The patient did have a UA that was negative. Influenza A was positive. Chest x-ray report negative. The patient has been admitted to the hospital. Infectious Disease was consulted for further recommendation regarding management. REVIEW OF SYSTEMS: CONSTITUTIONAL: Positive for weakness along with the fever. EYES: No complaint. ENT: As per HPI. RESPIRATORY: As per HPI. CARDIOVASCULAR: No complaint. GENITOURINARY: No complaint. GASTROINTESTINAL: No complaint. MUSCULOSKELETAL: No complaint. INTEGUMENTARY: No complaint. PSYCHOLOGICAL: No complaint. ENDOCRINE: No complaint. NEUROLOGICAL: No complaint. PAST MEDICAL HISTORY: Chronic back pain, osteoarthritis, reflux. PAST SURGICAL HISTORY: Right knee surgery cranial stenosis as an . SOCIAL HISTORY: Denies smoking, very rarely drinks. No drug use. FAMILY HISTORY: Father with history of diabetes mellitus. ALLERGIES: To SULFA antibiotic. MEDICATIONS: The patient is currently on: 1. Ultram. 2. Protonix and. 3. Tamiflu. 4. Zofran. 5. Narcan. 6. Tylenol. EXAMINATION: Blood pressure is 119/71 with a pulse of 90, temperature 98.2, T-max 102.3. He is 97% on room air. General description is a young male lying in bed in no distress. No tachypnea or accessory muscle of respiration use. HEENT shows pallor. There is no scleral icterus. Oral mucous membranes moist with minimal pharyngeal erythema. No thrush. NECK: Trachea central. There is no thyromegaly. LUNGS: Unlabored breathing. Clear to auscultation anteriorly. HEART: S1, S2. Regular rate and rhythm. ABDOMEN: Soft. No tenderness. No guarding. No rigidity. EXTREMITIES: No edema feet. SKIN: No rash or mass palpable. NEUROLOGICAL: The patient is awake, alert, oriented x3. Mood and affect normal. LABS: Hemoglobin is 7.7, white count 9.6. BUN of 10, creatinine 0.7. Electrolytes have been normal. Liver enzymes are normal. Urine is negative. Chest x-ray report negative for any pneumonia. DIAGNOSTIC IMPRESSION AND PLAN: Patient with acute fever, source is likely acute influenza A in a patient currently with no other clinical focus of infection. The patient's chest x-ray report negative for pneumonia. Urine has been negative. No evidence of any cellulitis. PLAN: 1. Tamiflu 75 mg p.o. twice a day to finish a 5-day course of therapy. 2. No need for any systemic antibiotic therapy, as no evidence of any secondary bacterial infection. 3. We will follow up on the clinical condition and culture to further adjust medication if needed. Thank you for this consultation. Will follow this patient along with you. MMODL / IJN: [id number] /
[2017-11-04 05:35] VITALS: RESP 20
[2017-11-04] MEDS: OSELTAMIVIR 75 MG CAP PO SCH (08:57)
[2017-11-04] MEDS ORDERED: PANTOPRAZOLE 40 MG TABLET PO SCH ×2 (09:00→17:30)
[2017-11-04 09:48] LABS: Anisocytosis Moderate; HCT 29.6 % (39.0-53.0); HGB 7.5 gm/dL (13.0-17.5); Hypochromasia Marked; MCH 16.5 pg (25.0-35.0); MCHC 25.3 g/dL (31.0-37.0); MCV 65.1 fL (80.0-100.0); Mean Platelet Volume 9.6; Microcytosis Marked; Platelet Count 488 k/uL (150-450); Poikilocytosis Marked; RBC 4.54 m/uL (4.30-5.90); RDW 23.6 % (11.5-15.5); WBC 4.5 k/uL (3.8-10.6)
--- NOTE | 2017-11-04 10:08 | CONS ---
CONSULTATION DATE OF SERVICE: 11/04/2017 REQUESTING PHYSICIAN: Dr. Smith. REASON FOR CONSULTATION: Severe iron-deficiency anemia. HISTORY OF PRESENT ILLNESS: The patient is a 27-year-old pleasant white male who was admitted to the hospital with fever, fatigue, weakness for the last few weeks' duration. While in the hospital, he was noted to have a hemoglobin of 5.69 and this is consistent with iron-deficiency anemia and hence we are consulted in regards to this issue. The patient denies any abdominal pain, reports no nausea, vomiting. He has been taking Motrin for the last 6 months for severe right knee pain. He takes at least 800 mg of Motrin on a daily basis and occasionally has some epigastric discomfort and takes TUMS. No prior history of peptic ulcer disease. He denies any rectal bleeding or melena. He was seen by Dr. Mccullough and was diagnosed with possible influenza and was started on Tamiflu. The patient feels much better. He has been afebrile for the last 24 hour period. PAST MEDICAL HISTORY: None, other than chronic right knee pain. MEDICATIONS: At home Motrin and TUMS. PAST SURGICAL HISTORY: Ear surgery, right knee arthroscopy. SOCIAL HISTORY: No smoking or alcohol use. FAMILY HISTORY: Father has diabetes mellitus. Mother has hiatal hernia. REVIEW OF SYSTEMS: CARDIOPULMONARY: No chest pain, shortness of breath. GENITOURINARY: No dysuria or hematuria. MUSCULOSKELETAL: Unremarkable other than right knee pain. NEUROLOGY: Unremarkable. PSYCHIATRIC: Unremarkable. ENT: Vision unremarkable. CONSTITUTIONAL: No recent weight loss. No fever, chills, night sweats. ENDOCRINOLOGY: Unremarkable. HEMATOLOGY: As mentioned above. PHYSICAL EXAMINATION: He appears comfortable. In no apparent distress. Vital signs are stable. Blood pressure is 117/55, pulse 87, temperature 98.7. HEENT examination unremarkable. Conjunctivae are pink, sclerae nonicteric. Oral cavity no lesions. NECK: No JVD or lymph node enlargement. CHEST: Clear to auscultation. HEART: Regular rate and rhythm. ABDOMEN: Soft. Bowel sounds are positive. No organomegaly. EXTREMITIES: No pedal edema. SKIN: No rashes. NEURO: Alert and oriented x3. No focal deficits. LABS: Done at the time of admission to the hospital, hemoglobin was 5.9, MCV 61, WBC 6.5, platelets 699. Basic metabolic panel is within normal limits. Hemoglobin today is 7.7. Influenza A was positive. IMPRESSION: 1. This a patient admitted to the hospital with Influenza A, presents with fever for the last 2 days' duration and while in the hospital, was noted to have severe symptomatic anemia with a hemoglobin of 5.1, requiring 2 units of blood transfusion. 2. Iron deficiency consistent with iron-deficiency anemia. He has been taking Motrin for the last 6 months for right knee pain, but clinically does not have any evidence of active ongoing bleeding, most likely we are dealing with active gastrointestinal blood loss. RECOMMENDATIONS: 1. We will proceed with an upper endoscopy today. 2. Continue on Protonix 40 mg daily and further recommendations will follow based on the upper endoscopy results. Thank you for this consultation. BG / WHITNEY: [id number] /
[2017-11-04 10:27] LABS: Anion Gap 11 mmol/L; Blood Urea Nitrogen 7 mg/dL (9-20); Calcium 8.8 mg/dL (8.4-10.2); Carbon Dioxide 29 mmol/L (22-30); Chloride 102 mmol/L (98-107); Glucose 89 mg/dL (74-99); Potassium 4.9 mmol/L (3.5-5.1); Sodium 142 mmol/L (137-145)
[2017-11-04] MEDS ORDERED: LIDOCAINE 1% INJ 10MG/ML (20 ML MDV) ONE (13:02)
[2017-11-04] MEDS ORDERED: PROPOFOL 10 MG/ML 20 ML VIAL IV ONE (13:02)
[2017-11-04] MEDS ORDERED: IV FLUID CONTINUATION 900 ML IV ONE (13:04)
--- NOTE | 2017-11-04 13:24 | P.PCN ---
Date of Procedure: 11/04/17 Procedure(s) Performed: BRIEF HISTORY: Patient is a 27-year-old, pleasant, white male was admitted hospital with fever and subsequently diagnosed with influenza A. At the time of admission to the hospital he was noted to have a hemoglobin of 5.6 g/dL and iron indices consistent with severe iron deficiency anemia. He denies any GI symptoms. He has occasional epigastric discomfort and takes Tums as needed. Has been taking Motrin on a regular basis for the last 6 months. He scheduled for an upper endoscopy to evaluate for peptic disease. PROCEDURE PERFORMED: Esophagogastroduodenoscopy with biopsy. PREOPERATIVE DIAGNOSIS: Severe iron deficiency anemia.. IV sedation per anesthesia. PROCEDURE: After informed consent was obtained, the patient was brought into the endoscopy unit. IV sedation was administered by Anesthesia under continuous monitoring. Initially the Olympus GIF-140 video endoscope was inserted into the mouth. Esophagus intubated without any difficulty. It was gradually advanced into the stomach and duodenum and carefully examined. The bulb and the second part of the duodenum appeared normal. Biopsies were done from the duodenum to rule out celiac disease. The scope at this time was withdrawn to the stomach, adequately insufflated with air, and upon careful examination, mucosa of the antrum, body, cardia and the fundus appeared normal. The scope was then withdrawn into the esophagus. The GE junction was located at 39 cm from the incisors. Small hiatal hernia was noted. There were linear erosions or ulcerations in the distal esophagus extending from 30-39 cm from the incisors consistent with LA grade D reflux esophagitis. The rest of the esophagus appeared normal and the patient tolerated the procedure well. IMPRESSION: 1. Severe erosions or ulcerations in the distal esophagus extending from 30-39 cm from the incisors consistent with LA grade D reflux esophagitis. 2. Small hiatal hernia. RECOMMENDATIONS: The findings of this examination were discussed with the patient as well as his family. He was advised to follow with the biopsy results. He will be started on Protonix 40 mg twice daily to be taken half hour before breakfast and dinnertime and follow antireflux measures. He can continue with iron supplements daily and monitor CBC on a monthly basis..
[2017-11-04] MEDS ORDERED: SODIUM FERRIC GLUCONAT-SUCROSE 125 MG in SODIUM CHLORIDE 0.9% 100 ML IVPB ONE (14:00)
[2017-11-04 14:17] VITALS: BP 113/67; PULSE 84; TEMP 97.8
--- NOTE | 2017-11-04 15:10 | P.DS ---
Providers Date of admission: 11/02/17 21:41 Attending physician: Chemo Smith Consults: 11/02/17 21:42 Consult Physician Stat Consulting Provider: Jamari Wu Consult Reason/Comments: Anemia Do you want consulting provider notified?: Yes 11/03/17 00:32 Consult Physician Routine Consulting Provider: Jeannine Mccullough Consult Reason/Comments: Fever Do you want consulting provider notified?: Yes, Notify in am 11/03/17 14:29 Consult Physician Routine Consulting Provider: Jude Fontenot Consult Reason/Comments: irondeficient anemia Do you want consulting provider notified?: Yes Primary care physician: Stated None Hospital Course: [id number] a pleasant gentleman was admitted secondary to subacute to chronic upper GI bleed and patient is found to have diffuse gastric and esophageal erosions. Patient was asked to discuss new ibuprofen use Tylenol instead. And the patient was also diagnosed with influenza for which patient will be discharged on Tamiflu patient will be discharged on 40 mg twice a day of Protonix. Patient's ferritin levels are extremely low because of which I'll give IV iron supplementation today and the patient will be discharged on oral iron supplementation and counseling regarding the side effects of oral iron but provided and the patient will follow with the gastroenterology, hematology, primary care physician. Patient doesn't have any no present acute GI bleed PHYSICAL EXAMINATION: GENERAL: The patient is alert and oriented x3, not in any acute distress. Well developed, well nourished. HEENT: Pupils are round and equally reacting to light. EOMI. No scleral icterus. Patient does have conjunctival pallor. Normocephalic, atraumatic. No pharyngeal erythema. No thyromegaly. CARDIOVASCULAR: S1 and S2 present. No murmurs, rubs, or gallops. PULMONARY: Chest is clear to auscultation, no wheezing or crackles. ABDOMEN: Soft, nontender, nondistended, normoactive bowel sounds. No palpable organomegaly. MUSCULOSKELETAL: No joint swelling or deformity. EXTREMITIES: No cyanosis, clubbing, or pedal edema. NEUROLOGICAL: Gross neurological examination did not reveal any focal deficits. SKIN: No rashes. Please refer to my dictation of H&P for further details. Patient Condition at Discharge: Stable Plan - Discharge Summary Discharge Rx Participant: No New Discharge Prescriptions: New Ferrous Sulfate [Iron (65 MG Elemental)] 325 mg PO BID #90 tab Pantoprazole Sodium [Protonix] 40 mg PO BID #60 tablet. Oseltamivir [Tamiflu] 75 mg PO Q12HR #10 cap Discontinued Ibuprofen [Motrin Ib] 800 mg PO Q6H PRN PRN Reason: Pain Discharge Medication List Ferrous Sulfate [Iron (65 MG Elemental)] 325 mg PO BID #90 tab 11/04/17 [Rx] Oseltamivir [Tamiflu] 75 mg PO Q12HR #10 cap 11/04/17 [Rx] Pantoprazole Sodium [Protonix] 40 mg PO BID #60 tablet. 11/04/17 [Rx] Follow up Appointment(s)/Referral(s): Jamari Wu MD [STAFF PHYSICIAN] - 12/06/17 10:00 am Lovely Brooks MD [STAFF PHYSICIAN] - 11/09/17 1:00 pm None,Stated [Primary Care Provider] - 1 Week (Please call your insurance company to find out who you can see for a primary care doctor. ) Patient Instructions/Handouts: Iron Deficiency Anemia (DC), Influenza (DC) Activity/Diet/Wound Care/Special Instructions: Regular diet. Activity as tolerated. Discharge Disposition: HOME SELF-CARE
--- NOTE | 2017-11-04 17:14 | PN ---
PROGRESS NOTE DATE OF SERVICE: 11/04/2017. REASON FOR FOLLOWUP: Acute influenza. INTERVAL HISTORY: The patient is afebrile. He is currently breathing comfortably. Patient denies having any chest pain, shortness of breath or cough. No abdominal pain. No nausea, vomiting or any diarrhea. PHYSICAL EXAMINATION: Blood pressure is 113/67 with a pulse of 84, temperature 97.9. He is 96% on room air. General description is a young male lying in bed in no distress. RESPIRATORY SYSTEM: Unlabored breathing. Clear to auscultation. No wheeze or crackle. HEART: S1, S2. Regular rate and rhythm. ABDOMEN: Soft. No tenderness. LABS: Hemoglobin 7.5, white count 4.5 with a BUN of 7, creatinine 0.74. DIAGNOSTIC IMPRESSION AND PLAN: Patient with acute influenza A, admitted to hospital with a fever, with the fever responding to the addition of the Tamiflu. That will be continued to finish a 5-day course of therapy. Clinically doubt any secondary bacterial infection; hence no need for any systemic antibiotic therapy. Will continue to monitor him closely. Continue supportive care. MMODL / IJN: [id number] /
[2017-11-07 14:05] LABS: Parvovirus B-19 IgG Antibodies 4.1 INDEX (<0.9); Parvovirus B-19 IgM Antibodies 0.1 INDEX (<0.9)
== END 2017-11-04 16:25 | disposition home or self-care (01) | DRG 382 ==
LOC: EC 18:58 → 4MS4W 21:41
PROVIDERS: ADMIT Hospitalist; ATTEND Hospitalist
PROC: 30233N1 Transfusion of Nonautologous Red Blood Cells into Peripheral Vein, Percutaneous Approach (ICD-10-PCS; principal; 2017-11-02)
PROC: 0DB98ZX Excision of Duodenum, Via Natural or Artificial Opening Endoscopic, Diagnostic (ICD-10-PCS; 2017-11-04)
DX: K22.11 Ulcer of esophagus with bleeding (principal); D47.3 Essential (hemorrhagic) thrombocythemia; J10.1 Influenza due to other identified influenza virus with other respiratory manifestations; D50.9 Iron deficiency anemia, unspecified; F41.9 Anxiety disorder, unspecified; G89.29 Other chronic pain; M17.11 Unilateral primary osteoarthritis, right knee; K21.0 Gastro-esophageal reflux disease with esophagitis; K44.9 Diaphragmatic hernia without obstruction or gangrene; Z79.1 Long term (current) use of non-steroidal anti-inflammatories (NSAID); Z83.3 Family history of diabetes mellitus; Z88.2 Allergy status to sulfonamides
CPT/HCPCS: 36415; 43239; 71046; 80048; 80053; 80074; 81001; 82607; 82728; 82746; 83010; 83540; 83550; 83605; 84443; 84466; 84484; 85025; 85027; 85045; 86038; 86747; 86850; 86900; 86901; 86920; 87040; 87081; 87086; 87390; 87430; 87502; 88305; 93005; 94640; 99284

== ENCOUNTER 2018-06-27 13:36 | Emergency (ER) | payer OTHER ==
[2018-06-27 13:44] VITALS: TEMP 98.3
--- NOTE | 2018-06-27 15:18 | XR ---
EXAM TYPE: LUMBAR SPINE X RAY SERIES COMPARISON: NONE HISTORY: Back pain TECHNIQUE: 4 views are submitted. FINDINGS: Alignment is anatomic. The pedicles are intact. The transverse processes are intact. There is no s pondylolysis or spondylolisthesis. Spina bifida occulta lumbosacral junction. IMPRESSION: 1. No acute process. If symptoms persist consider MRI to assess for disc herniation. 2. Spina bifida occulta lumbosacral junction.
--- NOTE | 2018-06-27 15:23 | XR ---
EXAMINATION TYPE: XR thoracic spine complete DATE OF EXAM: 06/27/2018 CLINICAL HISTORY: pain TECHNIQUE: Frontal, lateral, and swimmer's view of thoracic spine are obtained. COMPARISON: None. FINDINGS: Thoracic spine show satisfactory alignment without evidence of acute fracture or dislocatio n. Vertebral body heights are preserved. Disc spaces are well preserved. Visualized ribs are unrem arkable. IMPRESSION: No acute fracture or dislocation is seen in the thoracic spine. ICD 10 NO FRACTURE, INIT IAL EVALUATION
[2018-06-27] MEDS ORDERED: KETOROLAC 60 MG/2 ML VIAL IM STA (15:44)
--- NOTE | 2018-06-27 15:55 | ED ---
General Adult HPI - General Chief complaint: Extremity Injury, Lower Stated complaint: Back pain Source: patient, RN notes reviewed, old records reviewed Mode of arrival: ambulatory Limitations: no limitations - History of Present Illness Initial comments: 27-year-old male patient presents in ED with left para-Spinal back pain which radiates down his left posterior hamstring. Patient states that he has had this problem for approximately 2 months. Patient has been following up with a chiropractor regularly, has had no relief. Patient states that the symptoms back pain, radiation, worse with exertion. Patient denies any recent trauma, heavy lifting, or falls. Patient presents today because he wants symptom relief. Patient has not been evaluated by anyone other than the chiropractor. Patient denies IV drug use, fever chills, nausea vomiting diarrhea, saddle anesthesia, lower extremity weakness, loss of bowel or bladder control. Systemic: Pt denies fatigue, myalgia, fever/chills, rash. Pt denies weakness, night sweats, weight loss. Neuro: Pt denies headache, visual disturbances, syncope or pre-syncope. HEENT: Pt denies ocular discharge or irritation, otalgia, rhinorrhea, pharyngitis or notable lymphadenopathy. Cardiopulmonary: Pt denies chest pain, SOB, heart palpitations, dyspnea on exertion. Abdominal/GI: Pt denies abdominal pain, n/v/d. : Pt denies dysuria, burning w/ urination, frequency/urgency. Denies new onset urinary or bowel incontinence. MSK: Pt denies myalgia, loss of strength or function in extremities. - Related Data Previous Rx's Medication Instructions Recorded Ferrous Sulfate [Iron (65 MG 325 mg PO BID #90 tab 11/04/17 Elemental)] Oseltamivir [Tamiflu] 75 mg PO Q12HR #10 cap 11/04/17 Pantoprazole Sodium [Protonix] 40 mg PO BID #60 tablet. 11/04/17 Cyclobenzaprine [Flexeril] 1 - 2 tab PO TID #20 tablet 06/27/18 Ibuprofen [Motrin] 600 mg PO Q6HR PRN #40 day 06/27/18 Allergies Allergy/AdvReac Type Severity Reaction Status Date / Time Sulfa (Sulfonamide Allergy Unknown Verified 11/02/17 23:12 Antibiotics) Childhood Review of Systems ROS Statement: Those systems with pertinent positive or pertinent negative responses have been documented in the HPI. ROS Other: All systems not noted in ROS Statement are negative. Past Medical History Past Medical History: Osteoarthritis (OA) Additional Past Medical History / Comment(s): chronic knee pain. back pain. Osteoarthritis in right knee, anemia influenza A, reflux History of Any Multi-Drug Resistant Organisms: None Reported Past Surgical History: Orthopedic Surgery Additional Past Surgical History / Comment(s): rt knee,nasal and ear surgery, cranial synostosis as an . Past Anesthesia/Blood Transfusion Reactions: No Reported Reaction Past Psychological History: No Psychological Hx Reported Smoking Status: Never smoker Past Alcohol Use History: Occasional Past Drug Use History: None Reported - Past Family History Father Family Medical History: Diabetes Mellitus Additional Family Medical History / Comment(s): Hiatal hernia. Mother Family Medical History: No Reported History General Exam - General Exam Comments Initial Comments: Constitutional: NAD, AOX3, Pt has pleasant affect. HEENT: NC/AT, trachea midline, neck supple, no lymphadenopathy. Posterior pharynx non erythematous, without exudates. External ears appear normal, without discharge. Mucous membranes moist. Eyes PERRLA, EOM intact. There is no scleral icterus. No pallor noted. Cardiopulmonary: RRR, no murmurs, rubs or gallops, no JVD noted. Lungs CTAB in anterior and posterior beck[place]. No peripheral edema. Abdominal exam: Abdomen soft and non-distended. Abdomen non-tender to palpation in all 4 quadrants. Bowel sounds active in LLQ. No hepatosplenomegaly. Neuro: CN II-XII grossly intact. MSK: Midline, cervical, thoracic, lumbar spine nontender to palpation. Left paraspinal lumbar tenderness. 5/5 strength in psoas, quadriceps muscles. Patient ambulatory. Heel to toe walking intact. Reflexes 2/4 patellar and Achilles. Dorsalis pedis and posterior tibialis pulse +2 bilaterally. Lower extremity sensation intact. Left straight leg raise positive, right straight leg raise negative. Limitations: no limitations Course Vital Signs 06/27/18 13:40 Temperature 98.3 F Pulse Rate 104 H Respiratory 18 Rate Blood Pressure 118/75 O2 Sat by Pulse 95 Oximetry Medical Decision Making - Medical Decision Making 27-year-old male patient presents in ED with left para-Spinal back pain which radiates down his left posterior hamstring. Patient states that he has had this problem for approximately 2 months. Patient has been following up with a chiropractor regularly, has had no relief. Patient states that the symptoms back pain, radiation, worse with exertion. Patient denies any recent trauma, heavy lifting, or falls. Patient denies IV drug use, fever chills, nausea vomiting diarrhea, saddle anesthesia, lower extremity weakness, loss of bowel or bladder control. Physical exam displayed left lumbar tenderness, reproducible to palpation. Left straight leg raise was positive. Patient had 5 out of 5 strength in lower extremities, 2 out of 4 reflexes, patient ambulatory heel to toe walking intact. Plain film of thoracic and lumbar spine do not reveal any acute fracture, dislocation. Patient discharged with ibuprofen, muscle relaxers. Patient to follow-up with PCP in 1-2 days. Patient given referral to orthopedic consult. Patient to return to ED if any new signs or symptoms develop including weakness, loss of bowel or bladder control, new numbness/paresthesias, saddle anesthesia, or any other new symptoms. Case discussed with Dr. Hernandez. Disposition Clinical Impression: Lumbar back sprain Disposition: HOME SELF-CARE Condition: Good Instructions: Low Back Strain (ED) Additional Instructions: Patient to adhere to previously discussed treatment plan and will take medication(s) as directed. Patient to follow up with PCP in 1-2 days. Patient to return to ED if symptoms do not improve. Prescriptions: Cyclobenzaprine [Flexeril] 1 - 2 tab PO TID #20 tablet Ibuprofen [Motrin] 600 mg PO Q6HR PRN #40 day PRN Reason: Pain Is patient prescribed a controlled substance at d/c from ED?: No Referrals: Mae العراقي MD [Primary Care Provider] - 1-2 days Dale Sin DO [Doctor of Osteopathic Medicine] - 1-2 days Time of Disposition: 16:24
[2018-06-27 16:24] VITALS: BP 126/60; PULSE 89; RESP 16
== END 2018-06-27 16:20 | disposition home or self-care (01) ==
LOC: EC 13:36
DX: S33.5XXA Sprain of ligaments of lumbar spine, initial encounter (principal); M17.11 Unilateral primary osteoarthritis, right knee; Z88.2 Allergy status to sulfonamides
CPT/HCPCS: 72072; 72100; 99284; 96372; J1885

== ENCOUNTER 2019-02-08 22:54 | Inpatient (IN) | payer OTHER ==
--- NOTE | 2019-02-08 23:06 | ED ---
GI Bleed HPI - General Chief complaint: GI Bleed Stated complaint: Blood in stool Time Seen by Provider: 02/08/19 23:05 Source: patient Mode of arrival: ambulatory Limitations: no limitations - History of Present Illness Initial comments: Juan Carlos is a 28-year-old gentleman who presents the emergency room today for evaluation of abdominal pain and bloody stools. Patient reports that he's had some crampy abdominal pain throughout the day today, this evening around 9 PM he had stool with bright red bleeding. He continued to have crampy abdominal pain at 10 PM for the second bloody stool at which time he decided to come to ER for evaluation. Patient reports he's never experienced anything like this he has no history of inflammatory or irritable bowel. Patient states that he has been told he has some reflux and takes medication for that but no other GI pathology. He's never had any surgeries on his abdomen. does report that he's been feeling kind of unwell for about a week she's having generalized myalgias and fatigue, but nothing that would've brought him to the emergency department. - Related Data Home Medications Medication Instructions Recorded Confirmed Cetirizine HCl [Zyrtec] 10 mg PO DAILY 02/08/19 02/08/19 Pantoprazole Sodium [Protonix] 40 mg PO DAILY 02/08/19 02/08/19 Allergies Allergy/AdvReac Type Severity Reaction Status Date / Time Sulfa (Sulfonamide Allergy Unknown Verified 02/08/19 23:28 Antibiotics) Childhood Review of Systems ROS Statement: Those systems with pertinent positive or pertinent negative responses have been documented in the HPI. ROS Other: All systems not noted in ROS Statement are negative. Past Medical History Past Medical History: Osteoarthritis (OA) Additional Past Medical History / Comment(s): chronic knee pain. back pain. Osteoarthritis in right knee, anemia influenza A, reflux History of Any Multi-Drug Resistant Organisms: None Reported Past Surgical History: Orthopedic Surgery Additional Past Surgical History / Comment(s): rt knee,nasal and ear surgery, cranial synostosis as an . Past Anesthesia/Blood Transfusion Reactions: No Reported Reaction Past Psychological History: No Psychological Hx Reported Smoking Status: Never smoker Past Alcohol Use History: Occasional Past Drug Use History: None Reported - Past Family History Father Family Medical History: Diabetes Mellitus Additional Family Medical History / Comment(s): Hiatal hernia. Mother Family Medical History: No Reported History General Exam - General Exam Comments Initial Comments: Physical Exam GENERAL: Patient is well-developed and well-nourished. Pale appearing HENT: Normocephalic, Atraumatic. Post surgical changes EYES: PERRL, EOMI Conjunctival pallor PULMONARY: Unlabored respirations. CARDIOVASCULAR: There is a regular rate and rhythm without any murmurs gallops or rubs. ABDOMEN: Soft and nontender with normal bowel sounds. SKIN: Skin is clear with no lesions or rashes and otherwise unremarkable. : Rectal exam with brown stool, no kaylah blood or melena NEUROLOGIC: Patient is alert and oriented x3. Moving all extremities spontaneously MUSCULOSKELETAL: Normal extremities with adequate strength and full range of motion. No lower extremity swelling or edema. No calf tenderness. PSYCHIATRIC: Normal psychiatric evaluation Limitations: no limitations Course Vital Signs 02/08/19 02/09/19 02/09/19 23:01 02:19 03:35 Temperature 100.6 F H 98.3 F Pulse Rate 109 H 94 90 Respiratory 18 16 16 Rate Blood Pressure 136/82 136/74 135/75 O2 Sat by Pulse 97 98 98 Oximetry Medical Decision Making - Medical Decision Making Patient was seen and evaluated, history was obtained from patient Patient with no significant medical history presenting with crampy abdominal pain and to bright red bowel movements next line upon initial evaluation the patient does appear somewhat pale but is hemodynamically stable neck slight rectal exam reveals no kaylah blood and labs and imaging were ordered Labs with anemia, is microcytic, likely a component of acute on chronic, hemoglobin today is 7.0 CMP with no acute findings Computed tomography scan reveals hiatal hernia, no signs of inflammation or colitis to account for bleeding him a no acute findings Patient care was discussed with , admitting physician for patient's primary care physician Dr. Douglas. Dr. Culver results plan for admission, repeat labs and consult to Dr. Blanc for possible colonoscopy. - Lab Data Result diagrams: 02/09/19 00:15 02/09/19 00:15 Lab Results 02/09/19 02/09/19 02/09/19 Range/Units 00:15 00:15 00:15 WBC 6.9 (3.8-10.6) k/uL RBC 4.59 (4.30-5.90) m/uL Hgb 7.0 L (13.0-17.5) gm/dL Hct 27.4 L (39.0-53.0) % MCV 59.7 L (80.0-100.0) fL MCH 15.2 L (25.0-35.0) pg MCHC 25.5 L (31.0-37.0) g/dL RDW 19.8 H (11.5-15.5) % Plt Count 429 (150-450) k/uL Neutrophils % 65 % Lymphocytes % 19 % Monocytes % 7 % Eosinophils % 6 % Basophils % 1 % Neutrophils # 4.4 (1.3-7.7) k/uL Lymphocytes # 1.3 (1.0-4.8) k/uL Monocytes # 0.5 (0-1.0) k/uL Eosinophils # 0.4 (0-0.7) k/uL Basophils # 0.1 (0-0.2) k/uL Hypochromasia Marked Poikilocytosis Slight Anisocytosis Slight Microcytosis Marked PT (9.0-12.0) sec INR (<1.2) APTT (22.0-30.0) sec Sodium 138 (137-145) mmol/L Potassium 3.8 (3.5-5.1) mmol/L Chloride 102 (98-107) mmol/L Carbon Dioxide 27 (22-30) mmol/L Anion Gap 9 mmol/L BUN 14 (9-20) mg/dL Creatinine 0.91 (0.66-1.25) mg/dL Est GFR (CKD-EPI)AfAm >90 (>60 ml/min/1.73 sqM) Est GFR (CKD-EPI)NonAf >90 (>60 ml/min/1.73 sqM) Glucose 113 H (74-99) mg/dL Plasma Lactic Acid Quintin 1.4 (0.7-2.0) mmol/L Calcium 9.0 (8.4-10.2) mg/dL Total Bilirubin 0.7 (0.2-1.3) mg/dL AST 34 (17-59) U/L ALT 26 (21-72) U/L Alkaline Phosphatase 54 (38-126) U/L Creatine Kinase 115 (55-170) U/L Total Protein 6.7 (6.3-8.2) g/dL Albumin 4.2 (3.5-5.0) g/dL Urine Color Urine Appearance (Clear) Urine pH (5.0-8.0) Ur Specific Richards (1.001-1.035) Urine Protein (Negative) Urine Glucose (UA) (Negative) Urine Ketones (Negative) Urine Blood (Negative) Urine Nitrite (Negative) Urine Bilirubin (Negative) Urine Urobilinogen (<2.0) mg/dL Ur Leukocyte Esterase (Negative) 02/09/19 02/09/19 Range/Units 00:15 00:15 WBC (3.8-10.6) k/uL RBC (4.30-5.90) m/uL Hgb (13.0-17.5) gm/dL Hct (39.0-53.0) % MCV (80.0-100.0) fL MCH (25.0-35.0) pg MCHC (31.0-37.0) g/dL RDW (11.5-15.5) % Plt Count (150-450) k/uL Neutrophils % % Lymphocytes % % Monocytes % % Eosinophils % % Basophils % % Neutrophils # (1.3-7.7) k/uL Lymphocytes # (1.0-4.8) k/uL Monocytes # (0-1.0) k/uL Eosinophils # (0-0.7) k/uL Basophils # (0-0.2) k/uL Hypochromasia Poikilocytosis Anisocytosis Microcytosis PT 10.8 (9.0-12.0) sec INR 1.0 (<1.2) APTT 23.9 (22.0-30.0) sec Sodium (137-145) mmol/L Potassium (3.5-5.1) mmol/L Chloride (98-107) mmol/L Carbon Dioxide (22-30) mmol/L Anion Gap mmol/L BUN (9-20) mg/dL Creatinine (0.66-1.25) mg/dL Est GFR (CKD-EPI)AfAm (>60 ml/min/1.73 sqM) Est GFR (CKD-EPI)NonAf (>60 ml/min/1.73 sqM) Glucose (74-99) mg/dL Plasma Lactic Acid Quintin (0.7-2.0) mmol/L Calcium (8.4-10.2) mg/dL Total Bilirubin (0.2-1.3) mg/dL AST (17-59) U/L ALT (21-72) U/L Alkaline Phosphatase (38-126) U/L Creatine Kinase (55-170) U/L Total Protein (6.3-8.2) g/dL Albumin (3.5-5.0) g/dL Urine Color Light Yellow Urine Appearance Clear (Clear) Urine pH 6.5 (5.0-8.0) Ur Specific Richards >1.050 H (1.001-1.035) Urine Protein Negative (Negative) Urine Glucose (UA) Negative (Negative) Urine Ketones Negative (Negative) Urine Blood Negative (Negative) Urine Nitrite Negative (Negative) Urine Bilirubin Negative (Negative) Urine Urobilinogen <2.0 (<2.0) mg/dL Ur Leukocyte Esterase Negative (Negative) Disposition Clinical Impression: Anemia, Abdominal pain Disposition: ADMITTED IP TO THIS [facility] Condition: Stable Is patient prescribed a controlled substance at d/c from ED?: No
[2019-02-08] MEDS ORDERED: ACETAMINOPHEN TAB 500 MG TAB PO STA (23:57)
[2019-02-09] MEDS: SODIUM CHLORIDE 0.9% 500 ML 500 ML IV SCH ×3 (00:17→02:05)
[2019-02-09] MEDS: SODIUM CHLORIDE 0.9% 1,000 ML IV SCH ×4 (00:17→18:14)
[2019-02-09 00:41] LABS: ALT 26 U/L (21-72); AST 34 U/L (17-59); African American GFR (CKD) >90 (>60 ml/min/1.73 sqM); Albumin 4.2 g/dL (3.5-5.0); Alkaline Phosphatase 54 U/L (38-126); Anion Gap 9 mmol/L; Blood Urea Nitrogen 14 mg/dL (9-20); Carbon Dioxide 27 mmol/L (22-30); Chloride 102 mmol/L (98-107); Creatine Kinase 115 U/L (55-170); Glucose 113 mg/dL (74-99); Potassium 3.8 mmol/L (3.5-5.1); Sodium 138 mmol/L (137-145); Total Bilirubin 0.7 mg/dL (0.2-1.3); Total Protein 6.7 g/dL (6.3-8.2)
[2019-02-09 00:47] LABS: Anisocytosis Slight; Basophils # (A) 0.1 k/uL (0-0.2); Basophils % (A) 1 %; Eosinophils # (A) 0.4 k/uL (0-0.7); Eosinophils % (A) 6 %; HCT 27.4 % (39.0-53.0); Hypochromasia Marked; Lymphocytes # (A) 1.3 k/uL (1.0-4.8); Lymphocytes % (A) 19 %; MCH 15.2 pg (25.0-35.0); MCHC 25.5 g/dL (31.0-37.0); MCV 59.7 fL (80.0-100.0); Mean Platelet Volume 8.2; Microcytosis Marked; Monocytes # (A) 0.5 k/uL (0-1.0); Monocytes % (A) 7 %; Neutrophils # (A) 4.4 k/uL (1.3-7.7); Neutrophils % (A) 65 %; Platelet Count 429 k/uL (150-450); Poikilocytosis Slight; RBC 4.59 m/uL (4.30-5.90); RDW 19.8 % (11.5-15.5); WBC 6.9 k/uL (3.8-10.6)
[2019-02-09 01:08] LABS: Partial Thromboplastin Time 23.9 sec (22.0-30.0); Prothrombin Time 10.8 sec (9.0-12.0)
--- NOTE | 2019-02-09 02:28 | CT ---
EXAM: CT Abdomen and Pelvis With Intravenous Contrast CLINICAL HISTORY: ITS.REASON CT Reason: Pain TECHNIQUE: Axial computed tomography images of the abdomen and pelvis with intravenous contrast. CTDI is 31.7 mGy and DLP is 1406.8 mGy-cm. This CT exam was performed using one or more of the following dose reduction techniques: automated exposure control, adjustment of the mA and/or kV according to patient size, and/or use of iterative reconstruction technique. COMPARISON: Abdominal ultrasound 12/09/2015 FINDINGS: Lung bases: Mild reticular-nodular infiltrates involving bilateral lower lobes raising possibility of bibasilar pneumonia or possible aspiration. Mediastinum: Small to moderate fluid-filled hiatal hernia. Mild fluid distention of imaged distal thoracic esophagus. ABDOMEN: Liver: Liver is unremarkable. Gallbladder and bile ducts: Gallbladder partially contracted. No calcified gallstones. No evidence of biliary dilatation. Pancreas: Pancreas is unremarkable. Spleen: Mild splenomegaly. Adrenals: No adrenal masses. Kidneys and ureters: No evidence of renal calculi or hydronephrosis. Stomach and bowel: No evidence of bowel obstruction or pneumoperitoneum. Scattered colonic diverticulosis. PELVIS: Appendix: Normal caliber appendix identified in the right lower quadrant which extends into the right inguinal canal. No definite findings to suggest acute appendicitis although distal appendix within the inguinal canal is obscured. Clinical correlation is recommended. Bladder: Urinary bladder is unremarkable. No bladder calculi. Reproductive: Unremarkable as visualized. ABDOMEN and PELVIS: Intraperitoneal space: See above. Bones/joints: No acute bony abnormalities. Soft tissues: Small fat-containing umbilical hernia with mild soft tissue stranding within herniated fat.. Small fat-containing left inguinal hernia. Vasculature: No abdominal aortic aneurysm. Lymph nodes: No evidence of lymphadenopathy. IMPRESSION: Bilateral lower lobe reticular-nodular pulmonary infiltrates raising possibility of bibasilar pneumonia or possible aspiration. Small to moderate fluid-filled hiatal hernia and mild fluid distention of distal esophagus. Normal caliber appendix identified in the right lower quadrant which extends into the right inguinal canal. No definite findings to suggest acute appendicitis although distal appendix within the inguinal canal is obscured. Clinical correlation is recommended. Small fat-containing umbilical hernia with mild soft tissue stranding which is nonspecific and could reflect mild edematous or inflammatory changes. Mild splenomegaly. <MYCVCSECTION> Critical Value Communications 02/09/19 02:46 Verify Receipt Verified receipt with LUIS ALBERTO Loza. Report given to Dr. Lopez on 02/09 02:45 (-04:00)
[2019-02-09] MEDS ORDERED: NALOXONE 0.4 MG/ML 1 ML VIAL IV PRN (02:34)
[2019-02-09] MEDS ORDERED: ONDANSETRON 4 MG/2 ML VIAL IVP PRN (02:34)
[2019-02-09 02:49] LABS: Appearance,Urine Clear (Clear); Bilirubin,Urine Negative (Negative); Blood,Urine Negative (Negative); Color,Urine Light Yellow; Glucose,Urine (UA) Negative (Negative); Ketones,Urine Negative (Negative); Leukocyte Esterase,Urine Negative (Negative); Nitrite,Urine Negative (Negative); PH, Urine 6.5 (5.0-8.0); Protein,Urine Negative (Negative); Urobilinogen,Urine <2.0 mg/dL (<2.0)
[2019-02-09 02:56] LABS: Specific Gravity,Urine >1.050 (1.001-1.035)
[2019-02-09] MEDS ORDERED: PANTOPRAZOLE 40 MG/10 ML VIAL IV SCH ×2 (09:00→09:15)
[2019-02-09 10:10] LABS: Anisocytosis Slight; HCT 25.8 % (39.0-53.0); Hypochromasia Marked; MCH 14.8 pg (25.0-35.0); MCV 61.5 fL (80.0-100.0); Mean Platelet Volume 8.3; Microcytosis Marked; Platelet Count 392 k/uL (150-450); RDW 19.8 % (11.5-15.5); WBC 4.9 k/uL (3.8-10.6)
[2019-02-09 10:14] LABS: HGB 6.2 gm/dL (13.0-17.5)
[2019-02-09] MEDS ORDERED: LIDOCAINE 1% INJ 10MG/ML (20 ML MDV) ONE (10:35)
[2019-02-09] MEDS ORDERED: PROPOFOL 10 MG/ML 20 ML VIAL IV ONE (10:35)
--- NOTE | 2019-02-09 10:39 | P.GSCN ---
History of Present Illness Consult date: 02/09/19 Reason for Consult: GI bleed History of present illness: This a 20-year-old male who was admitted to the hospital last night with complaints of rectal bleeding. Patient states he noticed some bright red blood as well. He had some mild nonspecific abdominal pain yesterday. He describes some cramps. Patient history of GERD. He states he has reflux. He describes reflux in the supine position he can taste bile and acid. Past Medical History Past Medical History: Osteoarthritis (OA) Additional Past Medical History / Comment(s): chronic knee pain. back pain. Osteoarthritis in right knee, anemia influenza A, reflux History of Any Multi-Drug Resistant Organisms: None Reported Past Surgical History: Orthopedic Surgery Additional Past Surgical History / Comment(s): rt knee,nasal and ear surgery, cranial synostosis as an infant. Past Anesthesia/Blood Transfusion Reactions: No Reported Reaction Past Psychological History: No Psychological Hx Reported Smoking Status: Never smoker Past Alcohol Use History: Occasional Past Drug Use History: None Reported - Past Family History Father Family Medical History: Diabetes Mellitus Additional Family Medical History / Comment(s): Hiatal hernia. Mother Family Medical History: No Reported History Medications and Allergies Home Medications Medication Instructions Recorded Confirmed Type Cetirizine HCl [Zyrtec] 10 mg PO DAILY 02/08/19 02/08/19 History Pantoprazole Sodium [Protonix] 40 mg PO DAILY 02/08/19 02/08/19 History Allergies Allergy/AdvReac Type Severity Reaction Status Date / Time Sulfa (Sulfonamide Allergy Unknown Verified 02/08/19 23:28 Antibiotics) Childhood Surgical - Exam Vital Signs Temp Pulse Resp BP Pulse Ox 100.6 F H 109 H 18 136/82 97 02/08/19 23:01 02/08/19 23:01 02/08/19 23:01 02/08/19 23:01 02/08/19 23:01 - General no distress - Eyes PERRL - ENT normal pinna - Neck no masses - Respiratory normal expansion - Cardiovascular Rhythm: regular - Abdomen Abdomen: soft, non tender Hernia: umbilical Results - Labs 02/09/19 09:25 02/09/19 00:15 Abnormal Lab Results - Last 24 Hours (Table) 02/09/19 02/09/19 02/09/19 Range/Units 00:15 00:15 00:15 RBC (4.30-5.90) m/uL Hgb 7.0 L (13.0-17.5) gm/dL Hct 27.4 L (39.0-53.0) % MCV 59.7 L (80.0-100.0) fL MCH 15.2 L (25.0-35.0) pg MCHC 25.5 L (31.0-37.0) g/dL RDW 19.8 H (11.5-15.5) % Glucose 113 H (74-99) mg/dL Ur Specific [place] >1.050 H (1.001-1.035) 02/09/19 Range/Units 09:25 RBC 4.20 L (4.30-5.90) m/uL Hgb 6.2 L* (13.0-17.5) gm/dL Hct 25.8 L (39.0-53.0) % MCV 61.5 L (80.0-100.0) fL MCH 14.8 L (25.0-35.0) pg MCHC 24.0 L (31.0-37.0) g/dL RDW 19.8 H (11.5-15.5) % Glucose (74-99) mg/dL Ur Specific [place] (1.001-1.035) Microbiology - Last 24 Hours (Table) 02/09/19 00:15 Urine Culture - Preliminary Urine,Voided Diabetes panel 02/09/19 Range/Units 00:15 Sodium 138 (137-145) mmol/L Potassium 3.8 (3.5-5.1) mmol/L Chloride 102 (98-107) mmol/L Carbon Dioxide 27 (22-30) mmol/L BUN 14 (9-20) mg/dL Creatinine 0.91 (0.66-1.25) mg/dL Glucose 113 H (74-99) mg/dL Calcium 9.0 (8.4-10.2) mg/dL AST 34 (17-59) U/L ALT 26 (21-72) U/L Alkaline Phosphatase 54 (38-126) U/L Total Protein 6.7 (6.3-8.2) g/dL Albumin 4.2 (3.5-5.0) g/dL Calcium panel 02/09/19 Range/Units 00:15 Calcium 9.0 (8.4-10.2) mg/dL Albumin 4.2 (3.5-5.0) g/dL Pituitary panel 02/09/19 Range/Units 00:15 Sodium 138 (137-145) mmol/L Potassium 3.8 (3.5-5.1) mmol/L Chloride 102 (98-107) mmol/L Carbon Dioxide 27 (22-30) mmol/L BUN 14 (9-20) mg/dL Creatinine 0.91 (0.66-1.25) mg/dL Glucose 113 H (74-99) mg/dL Calcium 9.0 (8.4-10.2) mg/dL Adrenal panel 02/09/19 Range/Units 00:15 Sodium 138 (137-145) mmol/L Potassium 3.8 (3.5-5.1) mmol/L Chloride 102 (98-107) mmol/L Carbon Dioxide 27 (22-30) mmol/L BUN 14 (9-20) mg/dL Creatinine 0.91 (0.66-1.25) mg/dL Glucose 113 H (74-99) mg/dL Calcium 9.0 (8.4-10.2) mg/dL Total Bilirubin 0.7 (0.2-1.3) mg/dL AST 34 (17-59) U/L ALT 26 (21-72) U/L Alkaline Phosphatase 54 (38-126) U/L Total Protein 6.7 (6.3-8.2) g/dL Albumin 4.2 (3.5-5.0) g/dL Assessment and Plan Assessment: GI bleed. Patient appears stable with no active bleeding currently. GERD Patient will undergo EGD today. He'll be scheduled for colonoscopy on Tuesday.
[2019-02-09] MEDS ORDERED: IV FLUID CONTINUATION 1,000 ML IV ONE ×2 (10:41)
--- NOTE | 2019-02-09 10:57 | P.OP ---
Date of Procedure: 02/09/19 Preoperative Diagnosis: GERD Postoperative Diagnosis: Mild antral gastritis Moderate size hiatal hernia Severe erosive hemorrhagic esophagitis Procedure(s) Performed: EGD Anesthesia: MAC Surgeon: Tavon Edgar Pathology: other (Antrum, esophagus) Condition: stable Disposition: PACU Description of Procedure: The patient's placed on the endoscopy table in the lateral position. He received IV sedation. The gastroscope was oropharynx past esophagus into the stomach. Scope was placed through the pylorus. The first and second portion of duodenum appeared normal. The scope was then brought back the antrum this time. A biopsies performed. Scope was then retroflexed and the remainder of the stom ach appeared normal. The patient had a moderate size hiatal hernia. Distal esophagus appeared to be very inflamed there is evidence of hemorrhagic esophagitis. The GE junction was at 38 cm. The distal esophagus was biopsied. Proximal esophagus appeared normal. Scope was withdrawn for patient.
--- NOTE | 2019-02-09 10:58 | P.PN ---
Progress Note - Text Progress Note Date: 02/09/19 The patient had an EGD performed as morning. He has severe erosive hemorrhagic esophagitis. Related to reflux from a moderate size hiatal hernia. The patient will receive blood transfusion today. His hemoglobin we'll observe. He will undergo colonoscopy on Tuesday.
--- NOTE | 2019-02-09 11:12 | P.HPIM ---
History of Present Illness H&P Date: 02/09/19 Chief Complaint: BRBPR Juan Carlos Ulloa is a 28 yo M with PMH significant for GERD who presented to [facility] last night after 2 episodes of bloody stools. He states around 9 pm he passed a large amount of bright blood in the toilet without clots or melena. He had another episode about an hour later and decided to present to the hospital. He notes abdominal discomfort/cramping throughout the day but no nausea, vomiting, or kaylah abdominal pain. He notes his daughter is sick with a URI so he has had myalgias and stuffy nose/drainage for the past 4 days but no fevers. He does take zantac at home prn for his GERD. Pt also states he was told last year after having the flu that he had a chronic anemia. He has not had this rechecked. In the ED pt was FOBT positive with a Hgb of 7. On recheck this am his Hgb is down to 6.2. He has not had any further episodes of bloody stools since last night. Review of Systems All systems: negative Constitutional: Reports malaise, Denies chills, Denies fever Eyes: denies blurred vision, denies pain Ears, nose, mouth and throat: Denies headache, Denies sore throat Cardiovascular: Denies chest pain, Denies shortness of breath Respiratory: Reports cough Gastrointestinal: Reports heartburn, Reports hematochezia, Denies abdominal pain, Denies diarrhea, Denies hematemesis, Denies melena, Denies nausea, Denies vomiting Musculoskeletal: Denies myalgias Integumentary: Denies pruritus, Denies rash Neurological: Denies numbness, Denies weakness Psychiatric: Denies anxiety, Denies depression Endocrine: Denies fatigue, Denies weight change Past Medical History Past Medical History: GERD/Reflux, Osteoarthritis (OA) Additional Past Medical History / Comment(s): chronic knee pain. back pain. Osteoarthritis in right knee, anemia influenza A, reflux History of Any Multi-Drug Resistant Organisms: None Reported Past Surgical History: Orthopedic Surgery Additional Past Surgical History / Comment(s): rt knee,nasal and ear surgery, cranial synostosis as an infant. Past Anesthesia/Blood Transfusion Reactions: No Reported Reaction Past Psychological History: No Psychological Hx Reported Smoking Status: Never smoker Past Alcohol Use History: Occasional Past Drug Use History: None Reported - Past Family History Father Family Medical History: Diabetes Mellitus Additional Family Medical History / Comment(s): Hiatal hernia. Mother Family Medical History: No Reported History Medications and Allergies Home Medications Medication Instructions Recorded Confirmed Type Cetirizine HCl [Zyrtec] 10 mg PO DAILY 02/08/19 02/08/19 History Pantoprazole Sodium [Protonix] 40 mg PO DAILY 02/08/19 02/08/19 History Allergies Allergy/AdvReac Type Severity Reaction Status Date / Time Sulfa (Sulfonamide Allergy Unknown Verified 02/08/19 23:28 Antibiotics) Childhood Physical Exam Vitals: Vital Signs Temp Pulse Pulse Resp BP BP Pulse Ox 02/09/19 06:25 98.2 F 70 16 98/53 94 L 02/09/19 04:21 98.2 F 91 16 105/66 96 02/09/19 03:35 98.3 F 90 16 135/75 98 02/09/19 02:19 94 16 136/74 98 02/08/19 23:01 100.6 F H 109 H 18 136/82 97 Intake and Output 02/08/19 02/09/19 02/09/19 22:59 06:59 14:59 Other: # Voids 1 Weight 113.398 kg General: obese, well developed, tired. NAD. Vitals reviewed Eyes: PERRL, EOMI, conjunctiva normal HENT: normocephalic, mucus membranes moist Neck: supple, no JVD Lungs: normal respiratory effort, no wheezes or rales CV: Regular rate and rhythm, no murmur. Peripheral pulses 2+ Abdomen: soft, nondistended, nontender, no organomegaly Lymph: no cervical or axillary LAD Skin: warm and dry. Neuro: A&Ox3, normal mood and affect - EENT ENT: NA/AT Results CBC & Chem 7: 02/09/19 09:25 02/09/19 00:15 Labs: Abnormal Lab Results - Last 24 Hours (Table) 02/09/19 02/09/19 02/09/19 Range/Units 00:15 00:15 00:15 RBC (4.30-5.90) m/uL Hgb 7.0 L (13.0-17.5) gm/dL Hct 27.4 L (39.0-53.0) % MCV 59.7 L (80.0-100.0) fL MCH 15.2 L (25.0-35.0) pg MCHC 25.5 L (31.0-37.0) g/dL RDW 19.8 H (11.5-15.5) % Glucose 113 H (74-99) mg/dL Ur Specific [place] >1.050 H (1.001-1.035) 02/09/19 Range/Units 09:25 RBC 4.20 L (4.30-5.90) m/uL Hgb 6.2 L* (13.0-17.5) gm/dL Hct 25.8 L (39.0-53.0) % MCV 61.5 L (80.0-100.0) fL MCH 14.8 L (25.0-35.0) pg MCHC 24.0 L (31.0-37.0) g/dL RDW 19.8 H (11.5-15.5) % Glucose (74-99) mg/dL Ur Specific [place] (1.001-1.035) Microbiology - Last 24 Hours (Table) 02/09/19 00:15 Urine Culture - Preliminary Urine,Voided Thrombosis Risk Factor Assmnt - DVT/VTE Prophylaxis DVT/VTE Prophylaxis: Contraindicated - See note - Choose All That Apply Any of the Below Risk Factors Present?: Yes Each Factor Represents 1 point: Obesity (BMI >25) Other Risk Factors: No Thrombosis Risk Factor Assessment Total Risk Factor Score: 1 Thrombosis Risk Factor Assessment Level: Low Risk Assessment and Plan (1) Rectal bleed Current Visit: Yes Status: Acute Code(s): K62.5 - HEMORRHAGE OF ANUS AND RECTUM SNOMED Code(s): 51330206 (2) GERD (gastroesophageal reflux disease) Current Visit: Yes Status: Acute Code(s): K21.9 - GASTRO-ESOPHAGEAL REFLUX DISEASE WITHOUT ESOPHAGITIS SNOMED Code(s): 082694040 (3) Acute blood loss anemia Current Visit: Yes Status: Acute Code(s): D62 - ACUTE POSTHEMORRHAGIC ANEMIA SNOMED Code(s): 053272179 (4) Erosive esophagitis Current Visit: Yes Status: Acute Code(s): K22.10 - ULCER OF ESOPHAGUS WITHOUT BLEEDING SNOMED Code(s): 31141631 Plan: 1. BRBPR. Suspect UGIB. Surgery consulted for EGD/potential colonoscopy. Protonix 40 bid. Monitor Hgb transfuse to keep >7 2. Acute blood loss anemia. Transfuse 1 U today and recheck Hgb this afternoon 3. GERD. On protonix
[2019-02-09] MEDS ORDERED: PEG 3350-NA SULF,BICARB,CL/KCL 4,000 ML BOTTLE ONE (12:00)
--- NOTE | 2019-02-09 14:10 | P.PN ---
Progress Note - Text Progress Note Date: 02/09/19 Patient is s/p EGD today with Dr. Edgar. Hemoglobin 6.2. He is to receive 1 unit of packed RBCs. May begin clear liquid diet. Patient is scheduled for colonoscopy on Tuesday. If patient is discharged over the weekend, colonoscopy will be performed as an outpatient procedure Tuesday02/12/19. Prescription for GoLYTELY bowel prep sent to pharmacy in the event that patient is discharged home this weekend. Notified OR scheduling of inpatient versus outpatient colonoscopy so that in the event patient is discharged home, surgical services will call him and notify him of arrival time.
[2019-02-09 17:03] VITALS: RESP 14
[2019-02-09 17:20] LABS: Iron Saturation 1.84 (15.00-50.00)
[2019-02-09 17:48] VITALS: BP 130/70; PULSE 80; TEMP 98.6
[2019-02-09 18:18] LABS: Anisocytosis Moderate; Basophils # (A) 0.1 k/uL (0-0.2); Basophils % (A) 1 %; Eosinophils # (A) 0.4 k/uL (0-0.7); Eosinophils % (A) 5 %; HCT 31.7 % (39.0-53.0); Hypochromasia Marked; Lymphocytes # (A) 1.4 k/uL (1.0-4.8); Lymphocytes % (A) 18 %; MCH 15.5 pg (25.0-35.0); MCHC 24.7 g/dL (31.0-37.0); MCV 62.6 fL (80.0-100.0); Mean Platelet Volume 6.6; Microcytosis Marked; Monocytes # (A) 0.5 k/uL (0-1.0); Monocytes % (A) 6 %; Neutrophils # (A) 4.9 k/uL (1.3-7.7); Neutrophils % (A) 66 %; Platelet Count 381 k/uL (150-450); Poikilocytosis Moderate; RBC 5.06 m/uL (4.30-5.90); RDW 20.4 % (11.5-15.5); WBC 7.5 k/uL (3.8-10.6)
[2019-02-09 18:26] LABS: HGB 7.8 gm/dL (13.0-17.5)
--- NOTE | 2019-02-09 21:33 | P.DS ---
Providers Date of admission: 02/09/19 10:34 Expected date of discharge: 02/09/19 Attending physician: Harjeet Culver MD Consults: 02/09/19 02:35 Consult Physician Urgent Consulting Provider: Tavon Edgar Consult Reason/Comments: GI bleed, anemia, Hgb 7 Do you want consulting provider notified?: Yes, Notify in am Primary care physician: Aditi Douglas - Discharge Diagnosis(es) (1) Rectal bleed Status: Acute (2) GERD (gastroesophageal reflux disease) Status: Acute (3) Acute blood loss anemia Status: Acute (4) Erosive esophagitis Status: Acute Hospital Course: Juan Carlos Ulloa is a 28 yo M with PMH significant for GERD who presented to [facility] last night after 2 episodes of bloody stools. He states around 9 pm he passed a large amount of bright blood in the toilet without clots or melena. He had another episode about an hour later and decided to present to the hospital. He notes abdominal discomfort/cramping throughout the day but no nausea, vomiting, or kaylah abdominal pain. He notes his daughter is sick with a URI so he has had myalgias and stuffy nose/drainage for the past 4 days but no fevers. He does take zantac at home prn for his GERD. Pt also states he was told last year after having the flu that he had a chronic anemia. He states he tried to donate blood a few weeks ago and his Hgb at that time was 9. He has not followed up with his PCP about this. In the ED pt was FOBT positive with a Hgb of 7. Surgery was consulted and pt underwent EGD which demonstrated erosive esophagitis as well as hiatal hernia. Hgb was down to 6.2 the following morning after IV fluids so pt was transfused 1 U PRBC. Pt did not have any further bloody BM during his time in the hospital. PCP to follow up ferritin of 5 and total iron <10. He is discharged on protonix 40 mg bid and carafate qid and will await stomach biopsy results. He is scheduled for a colonoscopy on Tuesday and will return to the hospital to undergo this as an outpatient. Patient Condition at Discharge: Stable Plan - Discharge Summary New Discharge Prescriptions: New Peg 3350-Na Sulf,Bicarb,Cl/KCl [Golytely Lavage] 4,000 ml PO DIRECTED #1 bottle Peg 3350-Na Sulf,Bicarb,Cl/KCl [Golytely Lavage] 4,000 ml PO ONCE ml Sucralfate [Carafate] 1 gm PO ACHS #500 ml Pantoprazole Sodium [Protonix] 40 mg PO BID #40 tablet.dr Rizvi Cetirizine HCl [Zyrtec] 10 mg PO DAILY Pantoprazole Sodium [Protonix] 40 mg PO DAILY Discharge Medication List Cetirizine HCl [Zyrtec] 10 mg PO DAILY 02/08/19 [History] Pantoprazole Sodium [Protonix] 40 mg PO DAILY 02/08/19 [History] Pantoprazole Sodium [Protonix] 40 mg PO BID #40 tablet. 02/09/19 [Rx] Peg 3350-Na Sulf,Bicarb,Cl/KCl [Golytely Lavage] 4,000 ml PO DIRECTED #1 bottle 02/09/19 [Rx] Peg 3350-Na Sulf,Bicarb,Cl/KCl [Golytely Lavage] 4,000 ml PO ONCE ml 02/09/19 [Rx] Sucralfate [Carafate] 1 gm PO ACHS #500 ml 02/09/19 [Rx] Follow up Appointment(s)/Referral(s): Aditi Douglas DO [Primary Care Provider] - 1-2 days Tavon Edgar MD [STAFF PHYSICIAN] - 1 Week Activity/Diet/Wound Care/Special Instructions: PLAN IS FOR COLONOSCOPY WITH DR. EDGAR ON TUESDAY. SCHEDULING DEPARTMENT WILL CALL YOU WITH TIME OF PROCEDURE. PRESCRIPTION HAS BEEN CALLED INTO YOUR PHARMACY TO BE FILLED. IF BLOODY STOOLS PERSIST, RETURN TO ER. IF YOU ARE DIZZY/LIGHTHEADED CONTACT PHYSICIAN OR RETURN TO ER. Discharge Disposition: HOME SELF-CARE Pending Studies Pending Results: EGD biopsies
[2019-02-11] MEDS ORDERED: PEG 3350-NA SULF,BICARB,CL/KCL 4,000 ML BOTTLE PO ONE (12:00)
== END 2019-02-09 19:04 | disposition home or self-care (01) | DRG 381 ==
LOC: EC 22:54 → 4MS4W 02-09 02:34 → OBSVTOIN 02-09 10:34
PROVIDERS: ADMIT Family Medicine; ATTEND Family Medicine
PROC: 30233N1 Transfusion of Nonautologous Red Blood Cells into Peripheral Vein, Percutaneous Approach (ICD-10-PCS; 2019-02-09)
PROC: 0DB78ZX Excision of Stomach, Pylorus, Via Natural or Artificial Opening Endoscopic, Diagnostic (ICD-10-PCS; principal; 2019-02-09 07:30)
PROC: 0DB38ZX Excision of Lower Esophagus, Via Natural or Artificial Opening Endoscopic, Diagnostic (ICD-10-PCS; principal; 2019-02-09 07:30)
DX: K22.11 Ulcer of esophagus with bleeding (principal); D62 Acute posthemorrhagic anemia; K29.50 Unspecified chronic gastritis without bleeding; M17.11 Unilateral primary osteoarthritis, right knee; M54.9 Dorsalgia, unspecified; K21.9 Gastro-esophageal reflux disease without esophagitis; Z79.899 Other long term (current) drug therapy; Z83.3 Family history of diabetes mellitus; Z88.2 Allergy status to sulfonamides; Z86.2 Personal history of diseases of the blood and blood-forming organs and certain disorders involving the immune mechanism; Z86.19 Personal history of other infectious and parasitic diseases; Z83.79 Family history of other diseases of the digestive system; Z98.890 Other specified postprocedural states
CPT/HCPCS: 36415; 43239; 74177; 80053; 81003; 82272; 82550; 82728; 83540; 83550; 83605; 85025; 85027; 85610; 85730; 86850; 86900; 86901; 86920; 87040; 87086; 88305; 88312; 93005; 96360; 99285

== ENCOUNTER → 2019-08-29 | Outpatient (CLI) | payer OTHER ==
--- NOTE | 2019-08-29 18:04 | XR ---
EXAMINATION TYPE: XR knee complete RT DATE OF EXAM: 08/29/2019 COMPARISON: 10/04/2017 HISTORY: Pain TECHNIQUE: 4 views FINDINGS: There is previous ligament reconstructive surgery noted. There is mild spurring of the medi al femoral and tibial condyles. I see no fracture nor dislocation. There is no definite joint effusio n. IMPRESSION: Minor osteoarthritis. Previous surgery. There is increased spurring compared to old exam. No significant joint space narrowing.
== END | disposition home or self-care (01) ==
LOC: RADXRMAIN 16:48
PROVIDERS: ATTEND Emergency Medicine
DX: M17.11 Unilateral primary osteoarthritis, right knee (principal); Z98.890 Other specified postprocedural states

== ENCOUNTER → 2019-09-14 | Outpatient (CLI) | payer OTHER ==
--- NOTE | 2019-09-14 18:34 | MR ---
EXAMINATION TYPE: MR knee RT wo con DATE OF EXAM: 09/14/2019 COMPARISON: X-ray 08/29/2019 HISTORY: Strain, rt knee pain TECHNIQUE: Multiplanar, multisequence imaging of the right knee is performed without IV contrast. FINDINGS: There is postsurgical change involving the tibia and femur with artifact which results in s everely limited exam. Findings suggest previous ACL repair appears to be intact with no evidence of r ecurrent tear. Posterior cruciate ligament is intact. Abnormal signal in the anterior horn of the lateral meniscus is suspicious for a tear. A complex abno rmal signal in the posterior horn the medial meniscus is compatible with a complex tear. Due to artifact assessment of the cartilage is limited grossly appear to be intact. The articular rhys face. Medial collateral, lateral collateral, and posterior cruciate ligaments intact. No evidence of Ulloa's cyst. No popliteal fossa cyst. Patellar cartilage is maintained. There is spurring and narrowing of the medial compartment of the knee joint and along the upper marcela n of the patella. IMPRESSION: 1. Postsurgical change compatible with previous ACL repair which appears intact with no evidence of r ecurrent tear. 2. Complex tear posterior horn medial meniscus. 3. Findings suspicious for linear tear anterior horn lateral meniscus.
== END | disposition home or self-care (01) ==
LOC: RADMRIMAIN 06:39
PROVIDERS: ATTEND Emergency Medicine
DX: S83.231A Complex tear of medial meniscus, current injury, right knee, initial encounter (principal); S83.91XD Sprain of unspecified site of right knee, subsequent encounter

== ENCOUNTER 2021-02-26 18:52 | Emergency (ER) | payer OTHER ==
[2021-02-26] MEDS ORDERED: PANTOPRAZOLE 40 MG/10 ML VIAL IVP STA (19:22)
--- NOTE | 2021-02-26 20:08 | ED ---
Recheck HPI - General Chief Complaint: Recheck/Abnormal Lab/Rx Stated Complaint: low hemoglobin Time Seen by Provider: 02/26/21 19:02 Source: patient Mode of arrival: ambulatory Limitations: no limitations - History of Present Illness Initial Comments: 30-year-old male patient presents to the emergency department today for evaluation of low hemoglobin. Patient states that he has been vomiting blood. States it is mostly coffee ground emesis. States he's had this issue on and off for the last couple of years. States he did have EGD 2 years ago which showed "bleeding from my throat" but they're unable to pinpoint the cause. Patient states he did see his primary care physician on Tuesday who did labs, he was called today and informed her his hemoglobin was 7.1 probably lower today. Patient states his last bloody emesis was 2 days ago. Denies any significant abdominal pain. Denies fever or chills. Denies any dark or tarry stools. Patient denies any recent rash, cough, shortness of breath, chest pain, diarrhea, constipation, back pain, numbness, tingling, dizziness, weakness, hematuria, dysuria, urinary urgency, urinary frequency, headache, visual changes, or any other complaints. He is also reporting significant depression and would like to have psychiatric evaluation. He denies suicidal or homicidal ideation. - Related Data Home Medications Medication Instructions Recorded Confirmed Iron 18 mg PO DAILY 01/22/20 02/26/21 Allergies Allergy/AdvReac Type Severity Reaction Status Date / Time Sulfa (Sulfonamide Allergy Unknown Verified 02/26/21 20:06 Antibiotics) Childhood Review of Systems ROS Statement: Those systems with pertinent positive or pertinent negative responses have been documented in the HPI. ROS Other: All systems not noted in ROS Statement are negative. Past Medical History Past Medical History: GERD/Reflux, Osteoarthritis (OA) Additional Past Medical History / Comment(s): chronic knee pain. back pain. Osteoarthritis in right knee, anemia influenza A, reflux History of Any Multi-Drug Resistant Organisms: None Reported Past Surgical History: Orthopedic Surgery Additional Past Surgical History / Comment(s): rt knee,nasal and ear surgery, cranial synostosis as an infant. Past Anesthesia/Blood Transfusion Reactions: No Reported Reaction Past Psychological History: Depression Smoking Status: Never smoker Past Alcohol Use History: Occasional Past Drug Use History: None Reported - Past Family History Father Family Medical History: Diabetes Mellitus Additional Family Medical History / Comment(s): Hiatal hernia. Mother Family Medical History: No Reported History General Exam Limitations: no limitations General appearance: alert, in no apparent distress, other (Physical well- developed, well-nourished adult male patient in no acute distress. Vital signs upon presentation temperature 99.0F, pulse 99, respirations 17, blood pressure 110/63, pulse ox 97% on room air.) Eye exam: Present: normal appearance, PERRL, EOMI. Absent: scleral icterus, conjunctival injection, periorbital swelling ENT exam: Present: normal exam, normal oropharynx, mucous membranes moist Respiratory exam: Present: normal lung sounds bilaterally. Absent: respiratory distress, wheezes, rales, rhonchi, stridor Cardiovascular Exam: Present: regular rate, normal rhythm, normal heart sounds. Absent: systolic murmur, diastolic murmur, rubs, gallop, clicks GI/Abdominal exam: Present: soft, normal bowel sounds. Absent: distended, tenderness, guarding, rebound, rigid Neurological exam: Present: alert, oriented X3, CN II-XII intact Psychiatric exam: Present: normal affect, normal mood Skin exam: Present: warm, dry, intact, normal color. Absent: rash Course Vital Signs 02/26/21 02/26/21 02/26/21 18:55 20:52 22:22 Temperature 99.0 F 98.6 F 98.7 F Pulse Rate 99 93 92 Respiratory 17 18 18 Rate Blood Pressure 110/63 138/59 113/66 O2 Sat by Pulse 97 96 98 Oximetry Medical Decision Making - Medical Decision Making 30-year-old male patient presents for evaluation of low hemoglobin with outpatient lab draw. Patient reports coffee-ground emesis intermittently over the last couple of years last emesis was 2 days ago. Physical examination is unremarkable. Vital signs within normal range. Labs reviewed and did reveal a hemoglobin at 8.3 which is improved from 7.1 on Tuesday. I did discuss findings and results with the patient. He is agreeable to discharge home however again requesting psychiatric evaluation. EPS nurse was in to evaluate the patient and she is agreeable for discharge home as well with a safety plan. He has outpatient follow-up referrals given. He is given mobile crisis unit phone number. He is also instructed to follow-up with GI specialty for further evaluation of his vomiting. Return parameters were discussed in detail. He verbalizes understanding and agrees with this plan. Case discussed with my attending Dr. Hernandez. - Lab Data Result diagrams: 02/26/21 19:35 02/26/21 19:35 Lab Results 02/26/21 02/26/21 02/26/21 Range/Units 19:35 19:35 19:35 WBC 8.5 (3.8-10.6) k/uL RBC 5.03 (4.30-5.90) m/uL Hgb 8.3 L (13.0-17.5) gm/dL Hct 31.3 L (39.0-53.0) % MCV 62.3 L (80.0-100.0) fL MCH 16.5 L (25.0-35.0) pg MCHC 26.4 L (31.0-37.0) g/dL RDW 18.9 H (11.5-15.5) % Plt Count 553 H (150-450) k/uL MPV 7.8 Neutrophils % 65 % Lymphocytes % 23 % Monocytes % 4 % Eosinophils % 4 % Basophils % 1 % Neutrophils # 5.6 (1.3-7.7) k/uL Lymphocytes # 1.9 (1.0-4.8) k/uL Monocytes # 0.4 (0-1.0) k/uL Eosinophils # 0.4 (0-0.7) k/uL Basophils # 0.1 (0-0.2) k/uL Hypochromasia Marked Poikilocytosis Slight Anisocytosis Slight Microcytosis Marked PT 10.7 (9.0-12.0) sec INR 1.0 (<1.2) APTT 22.1 (22.0-30.0) sec Sodium 138 (137-145) mmol/L Potassium 4.3 (3.5-5.1) mmol/L Chloride 102 (98-107) mmol/L Carbon Dioxide 27 (22-30) mmol/L Anion Gap 9 mmol/L BUN 11 (9-20) mg/dL Creatinine 0.88 (0.66-1.25) mg/dL Est GFR (CKD-EPI)AfAm >90 (>60 ml/min/1.73 sqM) Est GFR (CKD-EPI)NonAf >90 (>60 ml/min/1.73 sqM) Glucose 120 H (74-99) mg/dL Plasma Lactic Acid Quintin (0.7-2.0) mmol/L Calcium 9.3 (8.4-10.2) mg/dL Total Bilirubin 0.4 (0.2-1.3) mg/dL AST 26 (17-59) U/L ALT 21 (4-49) U/L Alkaline Phosphatase 65 (38-126) U/L Troponin I (0.000-0.034) ng/mL Total Protein 6.9 (6.3-8.2) g/dL Albumin 4.3 (3.5-5.0) g/dL Urine Opiates Screen (NotDetected) Ur Oxycodone Screen (NotDetected) Urine Methadone Screen (NotDetected) Ur Propoxyphene Screen (NotDetected) Ur Barbiturates Screen (NotDetected) U Tricyclic Antidepress (NotDetected) Ur Phencyclidine Scrn (NotDetected) Ur Amphetamines Screen (NotDetected) U Methamphetamines Scrn (NotDetected) U Benzodiazepines Scrn (NotDetected) Urine Cocaine Screen (NotDetected) U Marijuana (THC) Screen (NotDetected) Blood Type Blood Type Recheck Bld Type Recheck Status Antibody Screen Spec Expiration Date 02/26/21 02/26/21 02/26/21 Range/Units 19:35 19:35 19:35 WBC (3.8-10.6) k/uL RBC (4.30-5.90) m/uL Hgb (13.0-17.5) gm/dL Hct (39.0-53.0) % MCV (80.0-100.0) fL MCH (25.0-35.0) pg MCHC (31.0-37.0) g/dL RDW (11.5-15.5) % Plt Count (150-450) k/uL MPV Neutrophils % % Lymphocytes % % Monocytes % % Eosinophils % % Basophils % % Neutrophils # (1.3-7.7) k/uL Lymphocytes # (1.0-4.8) k/uL Monocytes # (0-1.0) k/uL Eosinophils # (0-0.7) k/uL Basophils # (0-0.2) k/uL Hypochromasia Poikilocytosis Anisocytosis Microcytosis PT (9.0-12.0) sec INR (<1.2) APTT (22.0-30.0) sec Sodium (137-145) mmol/L Potassium (3.5-5.1) mmol/L Chloride (98-107) mmol/L Carbon Dioxide (22-30) mmol/L Anion Gap mmol/L BUN (9-20) mg/dL Creatinine (0.66-1.25) mg/dL Est GFR (CKD-EPI)AfAm (>60 ml/min/1.73 sqM) Est GFR (CKD-EPI)NonAf (>60 ml/min/1.73 sqM) Glucose (74-99) mg/dL Plasma Lactic Acid Quintin 1.3 (0.7-2.0) mmol/L Calcium (8.4-10.2) mg/dL Total Bilirubin (0.2-1.3) mg/dL AST (17-59) U/L ALT (4-49) U/L Alkaline Phosphatase (38-126) U/L Troponin I <0.012 (0.000-0.034) ng/mL Total Protein (6.3-8.2) g/dL Albumin (3.5-5.0) g/dL Urine Opiates Screen (NotDetected) Ur Oxycodone Screen (NotDetected) Urine Methadone Screen (NotDetected) Ur Propoxyphene Screen (NotDetected) Ur Barbiturates Screen (NotDetected) U Tricyclic Antidepress (NotDetected) Ur Phencyclidine Scrn (NotDetected) Ur Amphetamines Screen (NotDetected) U Methamphetamines Scrn (NotDetected) U Benzodiazepines Scrn (NotDetected) Urine Cocaine Screen (NotDetected) U Marijuana (THC) Screen (NotDetected) Blood Type A Positive Blood Type Recheck A Pos Bld Type Recheck Status No Antibody Screen NEGATIVE Spec Expiration Date 03/01/2021 - 233402/26/21 Range/Units 21:10 WBC (3.8-10.6) k/uL RBC (4.30-5.90) m/uL Hgb (13.0-17.5) gm/dL Hct (39.0-53.0) % MCV (80.0-100.0) fL MCH (25.0-35.0) pg MCHC (31.0-37.0) g/dL RDW (11.5-15.5) % Plt Count (150-450) k/uL MPV Neutrophils % % Lymphocytes % % Monocytes % % Eosinophils % % Basophils % % Neutrophils # (1.3-7.7) k/uL Lymphocytes # (1.0-4.8) k/uL Monocytes # (0-1.0) k/uL Eosinophils # (0-0.7) k/uL Basophils # (0-0.2) k/uL Hypochromasia Poikilocytosis Anisocytosis Microcytosis PT (9.0-12.0) sec INR (<1.2) APTT (22.0-30.0) sec Sodium (137-145) mmol/L Potassium (3.5-5.1) mmol/L Chloride (98-107) mmol/L Carbon Dioxide (22-30) mmol/L Anion Gap mmol/L BUN (9-20) mg/dL Creatinine (0.66-1.25) mg/dL Est GFR (CKD-EPI)AfAm (>60 ml/min/1.73 sqM) Est GFR (CKD-EPI)NonAf (>60 ml/min/1.73 sqM) Glucose (74-99) mg/dL Plasma Lactic Acid Quintin (0.7-2.0) mmol/L Calcium (8.4-10.2) mg/dL Total Bilirubin (0.2-1.3) mg/dL AST (17-59) U/L ALT (4-49) U/L Alkaline Phosphatase (38-126) U/L Troponin I (0.000-0.034) ng/mL Total Protein (6.3-8.2) g/dL Albumin (3.5-5.0) g/dL Urine Opiates Screen Not Detected (NotDetected) Ur Oxycodone Screen Not Detected (NotDetected) Urine Methadone Screen Not Detected (NotDetected) Ur Propoxyphene Screen Not Detected (NotDetected) Ur Barbiturates Screen Not Detected (NotDetected) U Tricyclic Antidepress Not Detected (NotDetected) Ur Phencyclidine Scrn Not Detected (NotDetected) Ur Amphetamines Screen Not Detected (NotDetected) U Methamphetamines Scrn Not Detected (NotDetected) U Benzodiazepines Scrn Not Detected (NotDetected) Urine Cocaine Screen Not Detected (NotDetected) U Marijuana (THC) Screen Not Detected (NotDetected) Blood Type Blood Type Recheck Bld Type Recheck Status Antibody Screen Spec Expiration Date - EKG Data -: EKG Interpreted by Me EKG Comments: EKG obtained at 1933 shows normal sinus rhythm with a ventricular rate of 88, ME interval 1:30, QRS duration 84, QT 326, QTC 394. No evidence of ST elevation or depression. Disposition Clinical Impression: GI bleed, Depression Disposition: ADMITTED IP TO THIS [facility] Condition: Good Instructions (If sedation given, give patient instructions): Gastrointestinal Bleeding (ED), Depression (ED) Additional Instructions: Follow-up with GI specialist as soon as possible. Follow-up with outpatient mental health services as directed. Return to the emergency department immediately for any new, worsening, or concerning symptoms. Is patient prescribed a controlled substance at d/c from ED?: No Referrals: Aditi Douglas DO [Primary Care Provider] - 1-2 days Lovely Brooks MD [STAFF PHYSICIAN] - 1-2 days Time of Disposition: 22:11
[2021-02-26 20:12] LABS: ALT 21 U/L (4-49); AST 26 U/L (17-59); African American GFR (CKD) >90 (>60 ml/min/1.73 sqM); Albumin 4.3 g/dL (3.5-5.0); Alkaline Phosphatase 65 U/L (38-126); Anion Gap 9 mmol/L; Blood Urea Nitrogen 11 mg/dL (9-20); Calcium 9.3 mg/dL (8.4-10.2); Carbon Dioxide 27 mmol/L (22-30); Chloride 102 mmol/L (98-107); Glucose 120 mg/dL (74-99); Non-African American GFR(CKD) >90 (>60 ml/min/1.73 sqM); Potassium 4.3 mmol/L (3.5-5.1); Sodium 138 mmol/L (137-145); Total Bilirubin 0.4 mg/dL (0.2-1.3); Total Protein 6.9 g/dL (6.3-8.2)
[2021-02-26 20:28] LABS: Anisocytosis Slight; Basophils # (A) 0.1 k/uL (0-0.2); Basophils % (A) 1 %; Eosinophils # (A) 0.4 k/uL (0-0.7); Eosinophils % (A) 4 %; HCT 31.3 % (39.0-53.0); HGB 8.3 gm/dL (13.0-17.5); Hypochromasia Marked; Lymphocytes # (A) 1.9 k/uL (1.0-4.8); Lymphocytes % (A) 23 %; MCH 16.5 pg (25.0-35.0); MCHC 26.4 g/dL (31.0-37.0); MCV 62.3 fL (80.0-100.0); Mean Platelet Volume 7.8; Microcytosis Marked; Monocytes # (A) 0.4 k/uL (0-1.0); Monocytes % (A) 4 %; Neutrophils # (A) 5.6 k/uL (1.3-7.7); Neutrophils % (A) 65 %; Platelet Count 553 k/uL (150-450); Poikilocytosis Slight; RBC 5.03 m/uL (4.30-5.90); RDW 18.9 % (11.5-15.5); WBC 8.5 k/uL (3.8-10.6)
[2021-02-26 20:33] LABS: Partial Thromboplastin Time 22.1 sec (22.0-30.0); Prothrombin Time 10.7 sec (9.0-12.0)
[2021-02-26 20:54] VITALS: RESP 18
[2021-02-26 21:30] LABS: Amphetamine Screen,Urine Not Detected (NotDetected); Barbiturate Screen,Urine Not Detected (NotDetected); Benzodiazepines Screen,Urine Not Detected (NotDetected); Cocaine Screen,Urine Not Detected (NotDetected); Methadone Screen, Urine Not Detected (NotDetected); Opiate Screen,Urine Not Detected (NotDetected); Oxycodone Screen, Urine Not Detected (NotDetected); Phencyclidine Screen,Urine Not Detected (NotDetected); Tricyclic Antidepressant,Urine Not Detected (NotDetected); Urn Cannabinoid Scrn Not Detected (NotDetected)
[2021-02-26 22:22] VITALS: BP 113/66; PULSE 92; TEMP 98.7
== END 2021-02-26 22:22 | disposition other institution (70) ==
LOC: EC 18:52
DX: K92.2 Gastrointestinal hemorrhage, unspecified (principal); F32.9 Major depressive disorder, single episode, unspecified; Z88.2 Allergy status to sulfonamides; Z83.3 Family history of diabetes mellitus
CPT/HCPCS: 82075; 36415; 93005; 86900; 86901; 80053; 83605; 84484; 85025; 85610; 85730; 86850; 80306; 96374; 99285; C9113

== ENCOUNTER 2023-05-11 09:58 | Emergency (ER) | payer OTHER ==
--- NOTE | 2023-05-11 10:31 | ED ---
General Adult HPI - General Chief complaint: Recheck/Abnormal Lab/Rx Stated complaint: low hemaglobin Time Seen by Provider: 05/11/23 10:09 Source: patient Mode of arrival: ambulatory Limitations: no limitations - History of Present Illness Initial comments: Dictation was produced using [employer] dictation software. please excuse any grammatical, word or spelling errors. Chief Complaint: 32-year-old male with past medical history of iron deficiency anemia presents to the ER for abnormal outpatient lab History of Present Illness: To 32-year-old male presents emergency department for abnormal outpatient blood work. He was at the primary care physician's office yesterday. He had an appointment with new primary care physician to [facility]. It was a routine visit he did not have any complaints. He had routine blood work drawn. His call this morning told that he should come to the ER for blood transfusion. Denies any black or bloody stools. Several weeks ago he did have one bout of bloody emesis. Denies any black or tarry stools. Patient has known history of iron deficiency anemia. He has had iron infusions and blood transfusions in the past. Patient states he was not told why he is iron deficient. The ROS documented in this emergency department record has been reviewed and confirmed by me. Those systems with pertinent positive or negative responses have been documented in the HPI. All other systems are other negative and/or noncontributory. - Related Data Home Medications Medication Instructions Recorded Confirmed No Known Home Medications 05/11/23 05/11/23 Allergies Allergy/AdvReac Type Severity Reaction Status Date / Time Sulfa (Sulfonamide Allergy Unknown Verified 05/11/23 12:17 Antibiotics) Childhood Review of Systems ROS Statement: Those systems with pertinent positive or pertinent negative responses have been documented in the HPI. ROS Other: All systems not noted in ROS Statement are negative. Past Medical History Past Medical History: GERD/Reflux, Osteoarthritis (OA) Additional Past Medical History / Comment(s): chronic knee pain. back pain. Osteoarthritis in right knee, anemia influenza A, reflux History of Any Multi-Drug Resistant Organisms: None Reported Past Surgical History: Orthopedic Surgery Additional Past Surgical History / Comment(s): rt knee,nasal and ear surgery, cranial synostosis as an infant. Past Anesthesia/Blood Transfusion Reactions: No Reported Reaction Past Psychological History: Depression Smoking Status: Never smoker Past Alcohol Use History: Occasional Past Drug Use History: None Reported - Past Family History Father Family Medical History: Diabetes Mellitus Additional Family Medical History / Comment(s): Hiatal hernia. Mother Family Medical History: No Reported History General Exam - General Exam Comments Initial Comments: PHYSICAL EXAM: General Impression: Alert and oriented x3, not in acute distress HEENT: Normocephalic atraumatic, extra-ocular movements intact, pupils equal and reactive to light bilaterally, mucous membranes moist. Cardiovascular: Heart regular rate and rhythm Chest: Able to complete full sentences, no retractions, no tachypnea Abdomen: abdomen soft, non-tender, non-distended, no organomegaly Musculoskeletal: Pulses present and equal in all extremities, no peripheral edema Motor: no focal deficits noted Neurological: CN II-XII grossly intact, no focal motor or sensory deficits noted Skin: Intact with no visualized rashes Psych: Normal affect and mood Rectal exam: Refused Limitations: no limitations Course Vital Signs 05/11/23 05/11/23 05/11/23 10:05 12:46 13:02 Temperature 98.6 F 97.7 F 98.4 F Pulse Rate 78 74 78 Respiratory 16 16 16 Rate Blood Pressure 107/56 135/74 138/73 O2 Sat by Pulse 97 98 Oximetry 05/11/23 05/11/23 13:22 14:21 Temperature 98.2 F 98.2 F Pulse Rate 84 73 Respiratory 16 20 Rate Blood Pressure 139/80 136/81 O2 Sat by Pulse 97 98 Oximetry Medical Decision Making - Medical Decision Making Was pt. sent in by a medical professional or institution (, PA, PRODUCTION ADMINISTRATOR, urgent care, hospital, or detention...) When possible be specific @ -Instructed to come to the emergency department by primary care doctor Did you speak to anyone other than the patient for history (EMS, parent, family, police, friend...)? What history was obtained from this source @ -No Did you review nursing and triage notes (agree or disagree)? Why? @ -I reviewed and agree with nursing and triage notes Were old charts reviewed (outside hosp., previous admission, EMS record, old EKG, old radiological studies, urgent care reports/EKG's, detention records)? Report findings @ -Previous labs reviewed showing microcytic anemia Differential Diagnosis (chest pain, altered mental status, abdominal pain women, abdominal pain men, vaginal bleeding, musculoskeletal, weakness, fever, dyspnea, syncope, headache, dizziness, GI bleed, back pain, seizure, CVA, palpatations, mental health)? @ -not applicable EKG interpreted by me (3pts min.). @ -None done X-rays interpreted by me (1pt min.). @ -None done CT interpreted by me (1pt min.). @ -None done U/S interpreted by me (1pt. min.). @ -None done What testing was considered but not performed or refused? (CT, X-rays, U/S, labs)? Why? @ -None What meds were considered but not given or refused? Why? @ -None Did you discuss the management of the patient with other professionals (professionals i.e. , PA, PRODUCTION ADMINISTRATOR, lab, RT, psych nurse, bilingual social worker, lawyer real estate, teacher, chief wellness officer, casework supervisor)? Give summary @ -No Was smoking cessation discussed for >3mins.? @ -No Was critical care preformed (if so, how long)? @ -No Were there social determinants of health that impacted care today? How? (Homelessness, low income, unemployed, alcoholism, drug addiction, transportation, low edu. Level, literacy, decrease access to med. care, half-way, rehab)? @ -No Was there de-escalation of care discussed even if they declined (Discuss DNR or withdrawal of care, Hospice)? DNR status @ -No What co-morbidities impacted this encounter? (DM, HTN, Smoking, COPD, CAD, Cancer, CVA, ARF, Chemo, Hep., AIDS, mental health diagnosis, sleep apnea, morb id obesity)? @ -None Was patient admitted / discharged? Hospital course, mention meds given and route, prescriptions, significant lab abnormalities, going to OR and other pertinent info. @ -32-year-old male with past medical history of iron deficiency anemia presents to the ER for hemoglobin of 6.0 drawn on outpatient blood work. Patient has any complaints. Lab evaluation shows hemoglobin of 6.4. Differential suggest iron deficiency anemia. Rest labs unremarkable. stool occult blood is negative. Patient given 1 unit blood transfusion. Patient discharged after transfusion. Reevaluated 225pm and in stable medical condition. Return precautions discussed. Patient clear for discharge. Undiagnosed new problem with uncertain prognosis? @ -No Drug Therapy requiring intensive monitoring for toxicity (Heparin, Nitro, Insulin, Cardizem)? @ -No Were any procedures done? @ -No Diagnosis/symptom? Acute, or Chronic, or Acute on Chronic? Uncomplicated (without systemic symptoms) or Complicated (systemic symptoms)? @ -Anemia Side effects of treatment? @ -No Exacerbation, Progression, or Severe Exacerbation? @ -No Poses a threat to life or bodily function? How? (Chest pain, [place], AL, pneumonia, PE, COPD, DKA, ARF, appy, cholecystitis, CVA, Diverticulitis, Homicidal, Suicidal, threat to staff... and all critical care pts) @ -yes - Lab Data Result diagrams: 05/11/23 10:32 05/11/23 10:32 Lab Results 05/11/23 05/11/23 05/11/23 Range/Units 10:28 10:32 10:32 WBC 9.2 (3.8-10.6) k/uL RBC 4.08 L (4.30-5.90) m/uL Hgb 6.4 L* (13.0-17.5) gm/dL Hct 25.3 L (39.0-53.0) % MCV 62.0 L (80.0-100.0) fL MCH 15.6 L (25.0-35.0) pg MCHC 25.1 L (31.0-37.0) g/dL RDW 21.2 H (11.5-15.5) % Plt Count 540 H (150-450) k/uL MPV 9.6 Neutrophils % 72 % Lymphocytes % 17 % Monocytes % 5 % Eosinophils % 3 % Basophils % 0 % Neutrophils # 6.6 (1.3-7.7) k/uL Lymphocytes # 1.5 (1.0-4.8) k/uL Monocytes # 0.4 (0-1.0) k/uL Eosinophils # 0.3 (0-0.7) k/uL Basophils # 0.0 (0-0.2) k/uL Hypochromasia Marked Anisocytosis Moderate Microcytosis Marked PT (9.0-12.0) sec INR (<1.2) APTT (22.0-30.0) sec Sodium 139 (137-145) mmol/L Potassium 4.5 (3.5-5.1) mmol/L Chloride 105 (98-107) mmol/L Carbon Dioxide 25 (22-30) mmol/L Anion Gap 9 mmol/L BUN 16 (9-20) mg/dL Creatinine 0.68 (0.66-1.25) mg/dL Est GFR (CKD-EPI)AfAm >90 (>60 ml/min/1.73 sqM) Est GFR (CKD-EPI)NonAf >90 (>60 ml/min/1.73 sqM) Glucose 99 (74-99) mg/dL Calcium 8.6 (8.4-10.2) mg/dL Magnesium 2.1 (1.6-2.3) mg/dL Stool Occult Blood (Negative) Blood Type A Positive Blood Type Recheck A Pos Bld Type Recheck Status No Antibody Screen NEGATIVE Crossmatch See Detail Spec Expiration Date 05/14/2023 - 232705/11/23 05/11/23 Range/Units 10:32 10:32 WBC (3.8-10.6) k/uL RBC (4.30-5.90) m/uL Hgb (13.0-17.5) gm/dL Hct (39.0-53.0) % MCV (80.0-100.0) fL MCH (25.0-35.0) pg MCHC (31.0-37.0) g/dL RDW (11.5-15.5) % Plt Count (150-450) k/uL MPV Neutrophils % % Lymphocytes % % Monocytes % % Eosinophils % % Basophils % % Neutrophils # (1.3-7.7) k/uL Lymphocytes # (1.0-4.8) k/uL Monocytes # (0-1.0) k/uL Eosinophils # (0-0.7) k/uL Basophils # (0-0.2) k/uL Hypochromasia Anisocytosis Microcytosis PT 11.0 (9.0-12.0) sec INR 1.0 (<1.2) APTT 24.6 (22.0-30.0) sec Sodium (137-145) mmol/L Potassium (3.5-5.1) mmol/L Chloride (98-107) mmol/L Carbon Dioxide (22-30) mmol/L Anion Gap mmol/L BUN (9-20) mg/dL Creatinine (0.66-1.25) mg/dL Est GFR (CKD-EPI)AfAm (>60 ml/min/1.73 sqM) Est GFR (CKD-EPI)NonAf (>60 ml/min/1.73 sqM) Glucose (74-99) mg/dL Calcium (8.4-10.2) mg/dL Magnesium (1.6-2.3) mg/dL Stool Occult Blood Negative (Negative) Blood Type Blood Type Recheck Bld Type Recheck Status Antibody Screen Crossmatch Spec Expiration Date Disposition Clinical Impression: Anemia Disposition: HOME SELF-CARE Condition: Fair Instructions (If sedation given, give patient instructions): Anemia (ED) Is patient prescribed a controlled substance at d/c from ED?: No Referrals: Aditi Douglas DO [REFERRING] - 1-2 days Time of Disposition: 14:25
[2023-05-11 10:44] LABS: Anisocytosis Moderate; Basophils % (A) 0 %; Eosinophils # (A) 0.3 k/uL (0-0.7); Eosinophils % (A) 3 %; HCT 25.3 % (39.0-53.0); Hypochromasia Marked; Lymphocytes # (A) 1.5 k/uL (1.0-4.8); Lymphocytes % (A) 17 %; MCH 15.6 pg (25.0-35.0); MCHC 25.1 g/dL (31.0-37.0); Mean Platelet Volume 9.6; Microcytosis Marked; Monocytes # (A) 0.4 k/uL (0-1.0); Monocytes % (A) 5 %; Neutrophils # (A) 6.6 k/uL (1.3-7.7); Neutrophils % (A) 72 %; Platelet Count 540 k/uL (150-450); RBC 4.08 m/uL (4.30-5.90); RDW 21.2 % (11.5-15.5); WBC 9.2 k/uL (3.8-10.6)
[2023-05-11 10:53] LABS: HGB 6.4 gm/dL (13.0-17.5)
[2023-05-11 10:55] LABS: African American GFR (CKD) >90 (>60 ml/min/1.73 sqM); Anion Gap 9 mmol/L; Blood Urea Nitrogen 16 mg/dL (9-20); Calcium 8.6 mg/dL (8.4-10.2); Carbon Dioxide 25 mmol/L (22-30); Chloride 105 mmol/L (98-107); Glucose 99 mg/dL (74-99); Magnesium 2.1 mg/dL (1.6-2.3); Non-African American GFR(CKD) >90 (>60 ml/min/1.73 sqM); Partial Thromboplastin Time 24.6 sec (22.0-30.0); Potassium 4.5 mmol/L (3.5-5.1); Sodium 139 mmol/L (137-145)
[2023-05-11 15:29] VITALS: BP 128/63; PULSE 78; RESP 20; TEMP 98.2
== END 2023-05-11 15:13 | disposition home or self-care (01) ==
LOC: EC 09:58
DX: D64.9 Anemia, unspecified (principal); Z86.59 Personal history of other mental and behavioral disorders; Z88.2 Allergy status to sulfonamides
CPT/HCPCS: 36415; 86900; 86901; 80048; 83735; 85025; 85610; 85730; 86850; 86920; 82272; 99284; 36430; P9016

== ENCOUNTER 2024-10-19 09:23 | Day surgery (SDC) | payer OTHER ==
[~2024-10-19 09:23] MED LIST: LIDOCAINE 1% (10MG/ML) FOR IV START INTRADERMA PRN
[2024-10-19] MEDS: IPRATROPIUM-ALBUTEROL 3 ML NEB INHALATION STA (10:04)
[2024-10-19] MEDS: LACTATED RINGERS 1,000 ML IV SCH (10:04)
[2024-10-19 10:11] VITALS: TEMP 98.6
[2024-10-19] MEDS: IV FLUID CONTINUATION 1,000 ML IV ONE (10:11)
[2024-10-19] MEDS ORDERED: KETAMINE HCL IN 0.9 % NACL 50 MG/5 ML SYRINGE ONE (10:17)
[2024-10-19] MEDS ORDERED: LIDOCAINE 1% INJ 10MG/ML (20 ML MDV) ONE (10:17)
[2024-10-19] MEDS ORDERED: PROPOFOL 10 MG/ML 20 ML VIAL IV ONE (10:17)
[2024-10-19] MEDS ORDERED: MIDAZOLAM 2 MG/2 ML VIAL ONE (10:17)
--- NOTE | 2024-10-19 10:47 | P.PCN ---
Date of Procedure: 10/19/24 Procedure(s) Performed: Brief history: Patient is a pleasant 33-year-old white male scheduled for an elective upper endoscopy as well as colonoscopy as a part of evaluation of iron deficiency anemia. Procedure performed: Esophagogastroduodenoscopy with biopsy Colonoscopy Preoperative diagnosis: Iron deficiency anemia [place] [facility] [place] After informed consent was obtained from the patient was brought into the endoscopy unit and IV sedation was administered by anesthesia under continuous monitoring. Initially upper endoscopy was done. The Olympus GF 160 video endoscope was inserted inserted into the mouth and esophagus intubated without any difficulty and was gradually advanced into the stomach and duodenum and carefully examined. The bulb and second part of the duodenum appeared normal. Biopsies were done from the duodenum to evaluate for celiac disease. The scope was then withdrawn into the stomach adequately insufflated with air and upon careful examination the antrum and body, had mild diffuse gastritis and biopsies were done from this area. Cardia and fundus appeared normal. The scope was then withdrawn into the esophagus. The GE junction was located at 38 cm to the incisors. There was 2 cm of Palomino's appearing mucosa extending from 36 to 38 cm from the incisors and multiple biopsies were done from this area. There were no erosions or ulcerations identified. Rest of the esophagus appeared normal. Patient tolerated the procedure well. At this time the patient continued to remain sedation. Initial digital rectal examination was normal. Olympus CF 160 video colonoscope was then inserted into the rectum and gradually advanced to the cecum without any difficulty. Careful examination was performed as the scope was gradually being withdrawn. The prep was excellent. The cecum, ascending colon, transverse colon, descending colon, sigmoid colon and rectum appeared normal. Retroflexion was performed in the rectum and no lesions were noted. Patient tolerated the procedure well. Impression: 1. Upper endoscopy revealed antral gastritis, moderate-sized hiatal hernia and Palomino's esophagus extending from 36 to 38 cm from the incisors 2. Colonoscopy was within normal limits with normal of colitis or colorectal neoplasia Recommendations: Findings of this examination were discussed with the patient as well as his family. He was advised to follow-up with the biopsy results. Continue omeprazole 20 milligrams p.o. daily. Continue iron supplements twice daily. Monitor CBC daily and follow-up in the office in 2 to 3 weeks. If the biopsy reveals a Palomino's esophagus, recommend a repeat upper endoscopy in 3 years.
[2024-10-19 11:12] VITALS: BP 116/77; PULSE 91; RESP 18
== END 2024-10-19 11:50 | disposition home or self-care (01) ==
LOC: ORWHC2ENDO 09:23
PROVIDERS: ATTEND Internal Medicine Gastroenterology
DX: K29.50 Unspecified chronic gastritis without bleeding (principal); K22.70 Barrett's esophagus without dysplasia; K21.00 Gastro-esophageal reflux disease with esophagitis, without bleeding; D50.9 Iron deficiency anemia, unspecified; K44.9 Diaphragmatic hernia without obstruction or gangrene; J45.909 Unspecified asthma, uncomplicated; M19.90 Unspecified osteoarthritis, unspecified site; E66.9 Obesity, unspecified; F32.A Depression, unspecified; F17.200 Nicotine dependence, unspecified, uncomplicated; Z79.899 Other long term (current) drug therapy; Z88.2 Allergy status to sulfonamides
CPT/HCPCS: 88305; 88313; 45378; 43239; J2250; J2003; J2704

== ENCOUNTER → 2025-02-20 | Outpatient (CLI) | payer OTHER ==
--- NOTE | 2025-02-20 11:25 | US ---
EXAMINATION TYPE: US venous doppler duplex LE LT DATE OF EXAM: 02/20/2025 11:01 AM COMPARISON: NONE CLINICAL INDICATION: Male, 34 years old with history of M79.89 SPECIFIED SOFT TISSUE DISORDERS; Left leg swelling TECHNIQUE: The lower extremity deep venous system is examined utilizing real time linear array sonog fátima with graded compression, doppler sonography and color-flow sonography. Grayscale, color doppler , spectral doppler imaging performed of the deep veins of the lower extremities FINDINGS: SIDE PERFORMED: Left Supervisor Tumbling And Rolling notes: Pt severely, morbidly obese- difficult exam VESSELS IMAGED: Common Femoral Vein Deep Femoral Vein Greater Saphenous Vein * Femoral Vein Popliteal Vein Small Saphenous Vein * Proximal Calf Veins (* superficial vessels) Left Leg: Negative for DVT; There is normal flow, compressibility, vascular waveforms. IMPRESSION: Technically difficult exam as above. No evidence for DVT within the left lower extremity imaged from the groin to the upper calf. [facility], , 02/20/2025 11:23 AM
== END | disposition home or self-care (01) ==
LOC: RADUSWWP 10:42
PROVIDERS: ATTEND Student in an Organized Health Care Education/Training Program
DX: M79.89 Other specified soft tissue disorders (principal)